=== PATIENT | female | born 1930 | race Caucasian/White ===

== ENCOUNTER 2018-07-07 08:38 | Emergency (ER) | payer MEDICARE, OTHER ==
[~2018-07-07] VITALS: Ht 157.5 cm; Wt 56.2 kg
[~2018-07-07 08:38] MED LIST: CALCAVITD PO; CENTRUM SILVER1 EAC2 PO; DIAZ5 PO; FISH1000 PO; HYDACE5 PO; OXYACE5T PO; PRED20 PO; [UNRECOGNIZED DRUG - OTHER]; [UNRECOGNIZED DRUG - REMARK]
[2018-07-07 09:43] LABS: BASOPHILS ABSOLUTE AUTO 0.06 K/mm3 (0.00-0.23); BASOPHILS PERCENT AUTO 1 % (0-2); EOSINOPHILS ABSOLUTE AUTO 0.21 K/mm3 (0.00-0.68); EOSINOPHILS PERCENT AUTO 3 % (0-6); Hemoglobin 11.9 g/dL (11.5-16.0); IMMATURE GRAN ABSOLUTE AUTO 0.02 K/mm3 (0.00-0.10); IMMATURE GRAN PERCENT AUTO 0 % (0-1); LYMPHOCYTES ABSOLUTE AUTO 1.35 K/mm3 (0.84-5.20); LYMPHOCYTES PERCENT AUTO 22 % (21-46); MONOCYTES PERCENT AUTO 11 % (4-13); Mean Corpuscular HGB 31.7 pg (26.0-34.0); Mean Corpuscular HGB Conc 32.2 g/dL (31.5-36.5); Mean Corpuscular Volume 99 fL (80-100); Mean Platelet Volume 11.1 fL (9.1-12.4); NEUTROPHILS ABSOLUTE AUTO 3.79 K/mm3 (1.96-9.15); NEUTROPHILS PERCENT AUTO 62 % (41-73); Platelet Count 217 K/mm3 (150-400); RDW Coefficient Variation 12.9 % (11.7-14.2); RDW Standard Deviation 46.7 fL (35.1-46.3); Red Blood Cell Count 3.75 M/mm3 (3.80-5.20); White Blood Cell Count 6.13 K/mm3 (4.00-11.30)
[2018-07-07 10:07] LABS: Alanine Aminotransfer (ALT/SGP 13 U/L (12-78); Albumin, Blood 3.8 g/dL (3.4-5.0); Albumin/Globulin Ratio 1.1 (0.8-1.8); Alk Phos 58 U/L (50-136); Anion Gap 5 mmol/L (6-16); Aspartate Aminotrans (AST/SGOT 18 U/L (12-37); Bilirubin, Total 0.3 mg/dL (0.1-1.0); Blood Urea Nitrogen 21 mg/dL (8-24); Bun/Creatinine Ratio 19.8 (12.0-20.0); CO2, Blood 30 mmol/L (21-32); Calcium, Blood 8.8 mg/dL (8.5-10.1); Chloride, Blood 105 mmol/L (98-108); Creatinine, Blood 1.06 mg/dL (0.40-1.00); Globulin, Blood 3.4 g/dL (2.2-4.0); Glomerular Filtration Rate 52 (60-); Glucose, Blood 79 mg/dL (70-99); Potassium, Blood 3.9 mmol/L (3.5-5.5); Sodium, Blood 140 mmol/L (136-145); Total Protein, Blood 7.2 g/dL (6.4-8.2); Troponin I <0.015 ng/mL (0.000-0.040)
== END 2018-07-07 11:55 | disposition home or self-care (01) ==
LOC: ER 08:38
PROVIDERS: Physician Assistant
DX: R07.9 Chest pain, unspecified (principal)
CPT/HCPCS: 36415; 71046; 80053; 83880; 84484; 85025; 85379; 93005; 93010

== ENCOUNTER 2019-03-09 09:40 | Emergency (ER) | payer MEDICARE, OTHER ==
[~2019-03-09] VITALS: Ht 157.5 cm; Wt 56.7 kg
[2019-03-09 11:20] LABS: Source, Urine Clean Catch
[2019-03-09 11:28] LABS: Bilirubin, Urine Neg (Neg); Blood, Urine 2+ (Neg); Glucose Qualitative, Urine Neg (Neg); Ketones, Urine 2+ (Neg); Leukocyte Esterase, Urine Neg (Neg); Nitrite, Urine Neg (Neg); Protein, Urine Neg (Neg); Urobilinogen, Urine 2+ (Normal)
[2019-03-09 11:39] LABS: Appearance, Urine Cloudy (Clear); Color, Urine Yellow (P-Yellow)
[2019-03-09 11:42] LABS: Squamous Epithelial Cells Rare /hpf (Few)
[2019-03-09 11:47] LABS: Amorphous Heavy (0-Heavy); Bacteria Mod /hpf
[2019-03-09] MEDS ORDERED: HYDR1TAB94 PO (13:13)
[2019-03-10] MEDS ORDERED: Acetaminophen-1 EAC1 PO (10:55)
[2019-03-27] MEDS ORDERED: ALBU2.5V5 INH (11:35)
[2019-03-27] MEDS ORDERED: AMOCLA600S PO (11:36)
[2019-03-27] MEDS ORDERED: BISA10S PR (11:37)
[2019-03-27] MEDS ORDERED: FURO20 PO (11:37)
[2019-03-27] MEDS ORDERED: Vsl#3 Capsule1 EACH PO (11:38)
[2019-03-27] MEDS ORDERED: ASPERCREME1 EACH TOP (11:39)
[2019-03-27] MEDS ORDERED: Melatonin3 M1 PO (11:39)
[2019-03-27] MEDS ORDERED: METO50 PO (11:41)
[2019-03-27] MEDS ORDERED: ONDA4ODT MM (11:42)
[2019-03-27] MEDS ORDERED: OMEPRAZOLE20 MG PO (11:42)
[2019-03-27] MEDS ORDERED: POTA20LUD PO (11:43)
[2019-03-27] MEDS ORDERED: ACET325UDC PO (11:44)
== END 2019-03-09 13:25 | disposition home or self-care (01) ==
LOC: ER 09:40
PROVIDERS: Emergency Medicine
DX: S22.31XA Fracture of one rib, right side, initial encounter for closed fracture (principal); M41.9 Scoliosis, unspecified; M81.0 Age-related osteoporosis without current pathological fracture; W19.XXXA Unspecified fall, initial encounter
CPT/HCPCS: 71046; 81001; 87086; 99283-25; A9270-GY

== ENCOUNTER 2019-03-10 10:36 | Inpatient (IN) | payer MEDICARE, OTHER ==
[~2019-03-10] VITALS: Ht 157.5 cm; Wt 56.9 kg
[~2019-03-10 10:36] MED LIST changes: +HYDR1TAB94 PO
[2019-03-10] MEDS ORDERED: Acetaminophen-1 EAC1 PO (10:55)
[2019-03-10 11:02] LABS: Hematocrit 34.9 % (33.0-51.0); Hemoglobin 11.5 g/dL (11.5-16.0); Mean Corpuscular HGB 31.2 pg (26.0-34.0); Mean Corpuscular Volume 95 fL (80-100); Mean Platelet Volume 11.4 fL (9.1-12.4); Platelet Count 170 K/mm3 (150-400); RDW Standard Deviation 44.7 fL (35.1-46.3); Red Blood Cell Count 3.69 M/mm3 (3.80-5.20); White Blood Cell Count 5.44 K/mm3 (4.00-11.30)
[2019-03-10 11:15] LABS: Alanine Aminotransfer (ALT/SGP 73 U/L (12-78); Albumin/Globulin Ratio 0.9 (0.8-1.8); Alk Phos 100 U/L (50-136); Anion Gap 9 mmol/L (6-16); Aspartate Aminotrans (AST/SGOT 83 U/L (12-37); Bilirubin, Total 1.9 mg/dL (0.1-1.0); Blood Urea Nitrogen 26 mg/dL (8-24); Bun/Creatinine Ratio 23.2 (12.0-20.0); CO2, Blood 25 mmol/L (21-32); Calcium, Blood 8.8 mg/dL (8.5-10.1); Chloride, Blood 98 mmol/L (98-108); Creatinine, Blood 1.12 mg/dL (0.40-1.00); Globulin, Blood 3.3 g/dL (2.2-4.0); Glomerular Filtration Rate 49 (60-); Glucose, Blood 93 mg/dL (70-99); Potassium, Blood 4.4 mmol/L (3.5-5.5); Sodium, Blood 132 mmol/L (136-145); Total Protein, Blood 6.3 g/dL (6.4-8.2); Troponin I <0.015 ng/mL (0.000-0.040)
[2019-03-10 11:22] LABS: BAND PERCENT MAN 21 % (0-8); BASOPHILS PERCENT MAN 0 % (0-2); EOSINOPHILS PERCENT MAN 0 % (0-6); LYMPHOCYTES ABSOLUTE MAN 0.16 K/mm3 (0.84-5.20); LYMPHOCYTES PERCENT MAN 3 % (21-46); METAMYELOCYTE ABSOLUTE MAN 0.16 K/mm3 (0.00-0.00); METAMYELOCYTE PERCENT MAN 3 % (0-0); MONOCYTES ABSOLUTE MAN 0.21 K/mm3 (0.16-1.47); MONOCYTES PERCENT MAN 4 % (4-13); NEUTROPHILS ABSOLUTE MAN 4.89 K/mm3 (1.96-9.15); SEG NEUTROPHILS PERCENT MAN 69 % (41-73); TOTAL CELLS COUNTED 100
[2019-03-10 14:48] LABS: Source, Urine Voided
[2019-03-10 14:52] LABS: Blood, Urine 2+ (Neg); Glucose Qualitative, Urine Neg (Neg); Ketones, Urine Neg (Neg); Leukocyte Esterase, Urine 1+ (Neg); Nitrite, Urine Neg (Neg); Protein, Urine 2+ (Neg); Specific Gravity, Urine 1.015 (1.003-1.022); Urobilinogen, Urine 2+ (Normal)
[2019-03-10 14:55] LABS: Appearance, Urine Clear (Clear); Bilirubin, Urine 1+ (Neg); Color, Urine Amber (P-Yellow)
[2019-03-10 14:58] LABS: Hyaline Casts 0-2 /lpf (0-2)
[2019-03-10 14:59] LABS: Bacteria Few /hpf; Calcium Oxalate Crystals Few /hpf; Squamous Epithelial Cells Few /hpf (Few)
--- NOTE | 2019-03-10 16:45 | NUR ---
PATIENT ARRIVED TO ROOM 348 FROM ED VIA W/C. ABLE TO TRANSFER FROM A/C TO BED WITH SBA. REPORTS SEVERE PAIN IN CHEST ABDOMEN WITH MOVEMENT, MEDICATED PER EMAR. PATIENT REPORTS POOR APPETITE FOR THE LAST SEVERAL DAYS AND NO BM SINCE SUNDAY. SKIN INTACT. VSS, ON RA. SON AT BEDSIDE. PATIENT IS A/OX4, SON IS AT BEDSIDE. PATIENT ORIENTED TO ROOM AND USE OF CALL LIGHT. DISCUSSED SAFETY AND FALL PRECAUTIONS. BED ALARM SET PER PROTOCOL.
--- NOTE | 2019-03-10 19:48 | NUR ---
transfer report to Justin RONDON on PT who lives alone and fell on a garden shovel on Sat when she was moving a wagon and last her balance when it caught on shovel. She has rt 10th rib fx and went home from ER and had increased pain.She has nausea with pain meds and last BM Sunday prior to fall. Poor appetite and in acute pain 12/19 rt abd radiates to back. Medicated with fentanyl 12.5 mcg with mild helpful effect 09/18. Has lidoderm patch rt abd and back and had norco 5/325 mg tab with minimal effect. Had been medicated for nausea 1756 with mild helpful effect.
--- NOTE | 2019-03-10 20:13 | NUR ---
Called Granddaughter Sofya to inform her PT has been transferred to room 337. Message left
--- NOTE | 2019-03-11 01:28 | NUR ---
Resting quietly at intervals. Awake at this rounding. Smiled, stated "Im OK'" then requested a pillow under her heels. (pillow placed as per request). Asymptomatic. Call light in reach.
--- NOTE | 2019-03-11 03:06 | NUR ---
PT RESTING QUIETLY WITH IVF INFUSING AT 100 ML/HR. LAB NOTIFIED NURSE OF POSITIVE BLOOD CX: GM NEG RODS. MD CORE MACHINE OPERATOR NOTIFIED, WILL REVIEW CHART AND PUT IN ORDERS. SEE MD DAHL FOR FOLLOW THROUGH. CALL LIGHT IN REACH
[2019-03-11 05:16] LABS: BASOPHILS ABSOLUTE AUTO 0.02 K/mm3 (0.00-0.23); BASOPHILS PERCENT AUTO 1 % (0-2); Hematocrit 33.5 % (33.0-51.0); Hemoglobin 11.1 g/dL (11.5-16.0); LYMPHOCYTES ABSOLUTE AUTO 0.23 K/mm3 (0.84-5.20); LYMPHOCYTES PERCENT AUTO 6 % (21-46); MONOCYTES PERCENT AUTO 6 % (4-13); Mean Corpuscular HGB 31.4 pg (26.0-34.0); Mean Corpuscular HGB Conc 33.1 g/dL (31.5-36.5); Mean Corpuscular Volume 95 fL (80-100); Mean Platelet Volume 11.5 fL (9.1-12.4); Platelet Count 135 K/mm3 (150-400); RDW Coefficient Variation 13.2 % (11.7-14.2); RDW Standard Deviation 45.9 fL (35.1-46.3); Red Blood Cell Count 3.54 M/mm3 (3.80-5.20); White Blood Cell Count 3.61 K/mm3 (4.00-11.30)
--- NOTE | 2019-03-11 05:24 | NUR ---
COMPLAINED OF SEVERE PAIN ABOUT 1 HR POST DIALUDID ADMIN. PO NORCO ADMINISTERED PER MAY - SEE MAR FOR DETAILS. VOICED SEVERE PAIN WHEN MED HIT STOMACH. HOB ELEVATED TO 90 DEGREES. CALL PLACED TO MD NEW CAR INSPECTOR. (DR BARDALES). NOTIFIED OF PAIN S/S. NURSE VOICED CONCERN OF POSSIBLE BLEED AND SUGGESTED TRANSFER TO PCU. MD ASSESSED VS AND INSTRUCTED NURSE TO REVIEW CBC IN THE AM DRAW, IF DECREASED HGB, TO CALL HER BACK. ALSO ORDERED HEATING PAD. WILL CONTINUE TO MONITOR.
[2019-03-11 05:30] LABS: EOSINOPHILS PERCENT AUTO 0 % (0-6); IMMATURE GRAN ABSOLUTE AUTO 0.01 K/mm3 (0.00-0.10); IMMATURE GRAN PERCENT AUTO 0 % (0-1); NEUTROPHILS ABSOLUTE AUTO 3.15 K/mm3 (1.96-9.15); NEUTROPHILS PERCENT AUTO 87 % (41-73)
[2019-03-11 05:33] LABS: Bun/Creatinine Ratio 27.9 (12.0-20.0); Calcium, Blood 8.3 mg/dL (8.5-10.1); Creatinine, Blood 1.11 mg/dL (0.40-1.00); Potassium, Blood 4.4 mmol/L (3.5-5.5)
[2019-03-11 05:45] LABS: BAND PERCENT MAN 44 % (0-8); BASOPHILS PERCENT MAN 0 % (0-2); EOSINOPHILS PERCENT MAN 0 % (0-6); LYMPHOCYTES ABSOLUTE MAN 0.28 K/mm3 (0.84-5.20); LYMPHOCYTES PERCENT MAN 8 % (21-46); METAMYELOCYTE ABSOLUTE MAN 0.32 K/mm3 (0.00-0.00); METAMYELOCYTE PERCENT MAN 9 % (0-0); MONOCYTES PERCENT MAN 3 % (4-13); NEUTROPHILS ABSOLUTE MAN 2.88 K/mm3 (1.96-9.15); SEG NEUTROPHILS PERCENT MAN 36 % (41-73); TOTAL CELLS COUNTED 100
--- NOTE | 2019-03-11 05:55 | NUR ---
PT WAS TRANSFERRED TO ROOM LAST PM. BP LOW, WAS BOLUSED WITH 500 CC NS PER MD ORDERS AND IVF OF NS AT 100 ML/HR AFTER. BP STABILIZED. PAIN CONTINUED, DILAUDID WAS ORDERED, RECEIVED DILAUDID A FEW TIMES AND IT SEEMED TO RELIVE THE PAIN, THEN IT STOPPED WORKING, RECEIVED NORCO PO, BUT PAIN INCREASED. MANAGER R D OTIFIED, CHANGED ANALGESICS TO FENTANYL - SEE MAR FOR DETAILS. ALSO NOTED HGB DROPPED FROM 11.5 TO 11.1. MD NOTIFIED. NO NEW ORDERS WITH THAT. CALL LIGHT IN REACH. ALERT AND ORIENTED X 4. HOB ELEVATED WILL CONTINUE TO MONITOR.
[2019-03-11 11:28] LABS: International Normalized Ratio 1.24; Prothrombin Time Results 12.9 Sec (9.7-11.5)
--- NOTE | 2019-03-11 16:42 | NUR ---
PT IS A/OX3, PLEASANT AND COOPERATIVE, THE PT IS A MINIMAL ASSIST UP TO THE BS, TODAY THE PT WAS REPORTING ABD PAIN ON THE RIGHT SIDE 10/ THE PT WAS MEDICATED WITH FENTNYL WITH MINIMAL RELIEF, THE PT WAS NAUSEATED THE PT WAS GIVEN ZOFRAN, THIS AFTERNOON THE PT WAS TAKEN DOWN TO CT FOR A DRAIN PLACEMENT INTO THE GALLBLADDER, THIS AFTERNOON THE PT REPORTED THAT MOST OF HER ABD PAIN HAD DISIPATED AND THAT MOST OF HER PAIN NOW IS IN HER BACK PT WAS MEDICATED AGIN FOR PAIN, THE PT WAS ABLE TO WORK WITH BOTH THE PHYSCICAL AND OCCUPATIONAL THERAPIST THIS AFTERNOON, PT WAS REPOSITIONED T/O THE DAY, CALL LIGHT IN REACH, WILL CONTINUE MONITOR AND ASSESS FOR CHANGES
--- NOTE | 2019-03-11 21:24 | NUR ---
VEIWS SCORE: PATIENT SCORED A 3 ON VEIWS SCORE FOR ELEVATED RESPIRATIONS AND HEART RATE. BASELINE HEAR RATE IS 90-104 PER TELI TECH. RESPIRATIONS ARE NOW 18 DOWN FROM 24. PATIENT WAS PAINFUL AND WAS GIVEN IV FENATYL. 02 SAT WAS 86% ON RA AT RECHECK, 1L NC WAS APPLIED. SAT IS NOW 95% ON 1;NC. WILL RECHECK VS IN 2 HOURS.
[2019-03-12 05:15] LABS: Hematocrit 32.7 % (33.0-51.0); Hemoglobin 10.9 g/dL (11.5-16.0); Mean Corpuscular HGB 30.9 pg (26.0-34.0); Mean Corpuscular HGB Conc 33.3 g/dL (31.5-36.5); Mean Corpuscular Volume 93 fL (80-100); Mean Platelet Volume 11.4 fL (9.1-12.4); Platelet Count 132 K/mm3 (150-400); RDW Coefficient Variation 13.4 % (11.7-14.2); RDW Standard Deviation 45.4 fL (35.1-46.3); Red Blood Cell Count 3.53 M/mm3 (3.80-5.20); White Blood Cell Count 7.17 K/mm3 (4.00-11.30)
[2019-03-12 05:33] LABS: Albumin, Blood 2.2 g/dL (3.4-5.0); Albumin/Globulin Ratio 0.6 (0.8-1.8); Bun/Creatinine Ratio 32.4 (12.0-20.0); Calcium, Blood 8.7 mg/dL (8.5-10.1); Creatinine, Blood 1.08 mg/dL (0.40-1.00); Globulin, Blood 3.4 g/dL (2.2-4.0); Potassium, Blood 4.4 mmol/L (3.5-5.5); Total Protein, Blood 5.6 g/dL (6.4-8.2)
[2019-03-12 05:59] LABS: BAND PERCENT MAN 34 % (0-8); BASOPHILS PERCENT MAN 0 % (0-2); EOSINOPHILS PERCENT MAN 0 % (0-6); LYMPHOCYTES ABSOLUTE MAN 0.35 K/mm3 (0.84-5.20); LYMPHOCYTES PERCENT MAN 5 % (21-46); METAMYELOCYTE ABSOLUTE MAN 0.14 K/mm3 (0.00-0.00); METAMYELOCYTE PERCENT MAN 2 % (0-0); MONOCYTES ABSOLUTE MAN 0.35 K/mm3 (0.16-1.47); MONOCYTES PERCENT MAN 5 % (4-13); MYELOCYTE ABSOLUTE MAN 0.07 K/mm3 (0.00-0.00); MYELOCYTE PERCENT MAN 1 % (0-0); NEUTROPHILS ABSOLUTE MAN 6.23 K/mm3 (1.96-9.15); SEG NEUTROPHILS PERCENT MAN 53 % (41-73); TOTAL CELLS COUNTED 100
--- NOTE | 2019-03-12 07:38 | NUR ---
SHIFT SUMMARY: PATIENT IS A&O X3, CONTINUES TO HAVE PAIN 8/10 IN BACK AND ABD. PAIN IN /10. IR DRAIN IS PATENT FOR A LARGE AMOUNT OF GREEN FLUID. PAIN IS CONTROLED FAIRLY WITH IV FENTANYL. NO NAUSEA REPIORTED BUT PATIENT KEEPS EMESIS BAG CLOSE EVEN WHEN DRINKING WATER. PO INTAKE IS VERY POOR. PATUIENT REMIANS ON 02 1L NC. UP TO THE BSC WITH ASSIST OF ONE AND WALKER. NO BM ONLY FLATUS.
[2019-03-12 10:19] LABS: Magnesium, Blood 1.9 mg/dL (1.6-2.4)
[2019-03-12 10:21] LABS: Thyroid Stimulating Hormone 1.38 uIU/mL (0.360-4.800)
--- NOTE | 2019-03-12 18:19 | NUR ---
Shift Summary A/O, pleasant and cooperative with care. Calls appropriately for needs. Medicated x 1 for nausea and x 1 for pain. Patient does not want to take any more pain medication because she believes it makes her feel nauseous. Patient has been running tachycardic. Afebrile, no other acute changes. Will continue to monitor.
[2019-03-13 05:18] LABS: Hematocrit 31.3 % (33.0-51.0); Hemoglobin 10.7 g/dL (11.5-16.0); Mean Corpuscular HGB 31.6 pg (26.0-34.0); Mean Corpuscular HGB Conc 34.2 g/dL (31.5-36.5); Mean Corpuscular Volume 92 fL (80-100); Mean Platelet Volume 11.8 fL (9.1-12.4); NRBC ABSOLUTE 0.03 K/mm3 (0.00-0.02); NRBC Auto 0.4 /100 WBC (0.0-0.2); Platelet Count 124 K/mm3 (150-400); RDW Coefficient Variation 13.5 % (11.7-14.2); RDW Standard Deviation 46.2 fL (35.1-46.3); Red Blood Cell Count 3.39 M/mm3 (3.80-5.20); White Blood Cell Count 7.24 K/mm3 (4.00-11.30)
[2019-03-13 05:32] LABS: Anion Gap 9 mmol/L (6-16); Blood Urea Nitrogen 46 mg/dL (8-24); Bun/Creatinine Ratio 51.1 (12.0-20.0); CO2, Blood 22 mmol/L (21-32); Calcium, Blood 8.6 mg/dL (8.5-10.1); Chloride, Blood 97 mmol/L (98-108); Glomerular Filtration Rate >60 (60-); Glucose, Blood 101 mg/dL (70-99); Potassium, Blood 4.5 mmol/L (3.5-5.5); Sodium, Blood 128 mmol/L (136-145)
[2019-03-13 05:42] LABS: BAND PERCENT MAN 17 % (0-8); BASOPHILS PERCENT MAN 0 % (0-2); EOSINOPHILS PERCENT MAN 0 % (0-6); LYMPHOCYTES ABSOLUTE MAN 0.28 K/mm3 (0.84-5.20); LYMPHOCYTES PERCENT MAN 4 % (21-46); METAMYELOCYTE ABSOLUTE MAN 0.14 K/mm3 (0.00-0.00); METAMYELOCYTE PERCENT MAN 2 % (0-0); MONOCYTES ABSOLUTE MAN 0.57 K/mm3 (0.16-1.47); MONOCYTES PERCENT MAN 8 % (4-13); NEUTROPHILS ABSOLUTE MAN 6.22 K/mm3 (1.96-9.15); SEG NEUTROPHILS PERCENT MAN 69 % (41-73); TOTAL CELLS COUNTED 100
--- NOTE | 2019-03-13 07:53 | NUR ---
SHIFT SUMMARY: PATIENT HAS BEEN VERY CONFUSED AND HALLUCINATING THIS SHIFT. OBSESSED ABOUT HER PURSE AND REPORTED TO THIS FOOD PREPARATION WORKER THAT SHE HAD MANY CREDIT CARDS IN HER WALLET AND BHARDWAJ. PATIENT AGREED TO PUT PURSE IN SAFE. SECURITY SAID THE SAFE IS SMALL AND WILL NOT ACCOMMODATE A PURSE, PATIENT REFUSED TO SEND WALLET ONLY. IT IS PASSED ON TO DAY SHIFT RN TO PLEASE SEND PURSE HOME WITH FAMILY MEMBER. VS ARE STABLE, MAINTAINS SATS IN MID 90 ON 1L NC. RESPIRATIONS ARE LAYBORED AND PATIENT BECOMES SOB WITH ACTIVITY. DRAIN IS PATIENT FOR A GREEN THICK FLUID. PATIENT DENIES PAIN OR NAUSEA. PO INTAKE IS VERY POOR, ONLY SIPS THIS SHIFT. CLINAMIX IS INFUSING PER MD ORDER.
--- NOTE | 2019-03-13 11:52 | NUR ---
0800 PT LETHARGIC, NEARLY SOLMULENT, REPOSITIONED IN BED. PT SLOW TO RESPONE. 0830 PT MORE ALERT, SITTING UPRIGHT, ATTEMPTED GIVEN PT CLEAR LIQUID, PT COUGHED AFTERWARDS. DR. LINK NOTIFIED, RECIEVED ORDERS FOR ST EVAL. 0910 DR. LINK IN TO SEE PT, PT MORE ALERT, MORE ORIENTATED, SPEAKING MORE CLEARLY. ST IN TO SEE PT, IT IS REPORTED THAT SHE WILL REQUIRED THICKENED LIQUIDS AND PILLS ONE AT A TIME IN APPLESAUCE. 1100 OT IN WITH PT, PT UP TO CHAIR, PT COMPLETELY ORIENTATED.
--- NOTE | 2019-03-13 14:37 | NUR ---
PHYSICAL THERAPIST, HOLLI IN TO SEE PT, PT IS DIFFICULT TO ARROUSE WITH PHYSICAL STIMULATION. PT EVENTUALLY AWOKE WITH STERNAL RUB AND VERBAL STIMULATION, BLANK STAIR, NOT ANSWERING QUESTIONS. PT WITH FURTHER VERBAL STIMULATION AND QUESTIONS, PT STARTS SPEAKING, PT IS DISORIENTATED EXCEPT TO PLACE. PT BECAME MORE ALERT AND ASKED PHYSIAL THERAPIST TO TURN TV OFF SO THAT SHE COULD IN [place], THE PT REPORTED THAT SHE FELT THOUGH SHE WAS DYING. RESUCITATION WAS EXPLAINED TO PT, PT REPORTED THAT SHE WOULD WANT TO PEACEFULLY AND NOT HAVE ANY THING DONE TO SAVE HER LIFE IF SHE WAS FOUND . PHYSICAL THERAPY IN ROOM AND WITNESSED PT STATE HER DYING WISHES. PT IS A FULL CODE, NO POLST ON FILE. DEREK HOFFMAN WITH PALLIATIVE CARE NOTIFIED, CALL OUT TO DR. LINK, VSS, TELE AFIB HR 95.
--- NOTE | 2019-03-13 18:20 | NUR ---
SHIFT SUMMARY. PT WITH VARYING LEVELS OF ALERTNESS AND ORIENTATION THROUGHOUT THE SHIFT. PALLIATIVE CARE RN PATRICIA HOFFMAN IN TO SEE PT THIS EVENING. PT REPORTS ABD PAIN, ALTHOUGH REFUSES NEW ORDER FOR APAP. PT CONITNUES WITH POOR PO INTAKE. ON 2L O2 NC, LUNGS CLEAR ALTHOUGH DIM AND SHALLOW. 200 ML DARK BROWN LIQUID DRAINED FROM BILIARY DRAIN AT END OF SHIFT. PT'S SONS IN TO VISIT INTERMITTENTLY DURING SHIFT.
--- NOTE | 2019-03-13 20:27 | NUR ---
PT ASLEEP WHEN NURSE ENTERED ROOM. I CALLED PT'S NAME A COUPLE OF TIMES TO WHICH PT WAS STILL SLEEPING. PT AROUSABLE WHEN I RUBBED HER SHOULDERS AND CALLED OUT HER NAME. PT SLOW TO RESPOND BUT KNEW SHE IS AT THE HOSPITAL AND THE YEAR. PT REPORTS SHE IS SEEING CHILDREN PLAYING AND HEARING MUSIC. I RE-ASSURRED PT IS AT THE HOSPITAL. HELD BOWEL MEDS DUE TO LOOSE STOOLS. WILL CONTINUE TO MONITOR.
--- NOTE | 2019-03-14 05:58 | NUR ---
VAN CDL DRIVER SUMMARY PT IS A/O X4 WHEN AWAKE. PT IS MORE AWAKE THAN SOMNLENT TOWARDS END OF SHIFT. PT CAN COMMUNICATE DISCOMFORTS AND CALLS APPROPRIATELY. BILE DRAIN PATENT AND DRAINING BROWNISH BILE. PT DENIES SEEING OR HEARING ANYTHING THAT SHE SHOULD NOT BE TOWARDS END OF SHIFT. SEE PREVIOUS NOTE. OTHERWISE, NO ACUTE CHANGES.
[2019-03-14 11:55] LABS: Hematocrit 32.3 % (33.0-51.0); Mean Corpuscular HGB Conc 34.1 g/dL (31.5-36.5); Mean Corpuscular Volume 91 fL (80-100); Mean Platelet Volume 11.6 fL (9.1-12.4); NRBC ABSOLUTE 0.07 K/mm3 (0.00-0.02); NRBC Auto 0.4 /100 WBC (0.0-0.2); Platelet Count 150 K/mm3 (150-400); RDW Coefficient Variation 13.7 % (11.7-14.2); RDW Standard Deviation 46.4 fL (35.1-46.3); Red Blood Cell Count 3.55 M/mm3 (3.80-5.20); White Blood Cell Count 17.02 K/mm3 (4.00-11.30)
[2019-03-14 12:21] LABS: Alanine Aminotransfer (ALT/SGP 36 U/L (12-78); Albumin, Blood 2.1 g/dL (3.4-5.0); Albumin/Globulin Ratio 0.6 (0.8-1.8); Alk Phos 112 U/L (50-136); Anion Gap 9 mmol/L (6-16); Aspartate Aminotrans (AST/SGOT 38 U/L (12-37); BAND PERCENT MAN 15 % (0-8); BASOPHILS PERCENT MAN 0 % (0-2); Bilirubin, Total 0.7 mg/dL (0.1-1.0); Blood Urea Nitrogen 41 mg/dL (8-24); Bun/Creatinine Ratio 63.2 (12.0-20.0); CO2, Blood 22 mmol/L (21-32); Calcium, Blood 8.1 mg/dL (8.5-10.1); Chloride, Blood 95 mmol/L (98-108); Creatinine, Blood 0.65 mg/dL (0.40-1.00); EOSINOPHILS PERCENT MAN 0 % (0-6); Globulin, Blood 3.4 g/dL (2.2-4.0); Glomerular Filtration Rate >60 (60-); Glucose, Blood 135 mg/dL (70-99); LYMPHOCYTES ABSOLUTE MAN 1.36 K/mm3 (0.84-5.20); LYMPHOCYTES PERCENT MAN 8 % (21-46); METAMYELOCYTE ABSOLUTE MAN 0.34 K/mm3 (0.00-0.00); METAMYELOCYTE PERCENT MAN 2 % (0-0); MONOCYTES ABSOLUTE MAN 0.34 K/mm3 (0.16-1.47); MONOCYTES PERCENT MAN 2 % (4-13); MYELOCYTE ABSOLUTE MAN 0.34 K/mm3 (0.00-0.00); MYELOCYTE PERCENT MAN 2 % (0-0); NEUTROPHILS ABSOLUTE MAN 14.63 K/mm3 (1.96-9.15); Potassium, Blood 4.5 mmol/L (3.5-5.5); SEG NEUTROPHILS PERCENT MAN 71 % (41-73); Sodium, Blood 126 mmol/L (136-145); TOTAL CELLS COUNTED 100; Total Protein, Blood 5.5 g/dL (6.4-8.2)
--- NOTE | 2019-03-14 12:50 | NUR ---
Review of patient care and needs and symptoms with daughter. [place] and [place] on [place]. She states easiest way to get decision is to contact gandaughter if needed. both are listed on face sheet. Pt has power of personal injury attorney and advance directive. Review of her condition daughter states she believes she would still want full code. The [facility] will bring philip copy. Advised that they may be asked to make decisions if she declines anr has an event so family contact is important. Review pt frailty and that she is recieving IV nutrition. Will continue to update family and expand and revisit code status.
--- NOTE | 2019-03-14 17:46 | NUR ---
SHIFT SUMMARY. PT MORE ALERT AND CONSISTENTLY ORIENTATED THIS SHIFT COMPARED TO YESTERDAY. PT CONTINUES WITH POOR PO INTAKE, PT UP TO CHAIR FOR EACH MEAL AND ENCOURAGED TO EAT AND DRINK TO NO AVAIL. PT REPORTED ABD PAIN TO RUQ THIS AFTERNOON, PAIN MANAGED WELL WITH ADDITION OF ULTRAM TO REGIMEN. BILIARY DRAIN WITH 80ML DARK BROWN/YELLOW DRAINAGE. DR. COLLAZO IN TO EVALUATE PT TODAY WITH THIS RN AT BEDSIDE. MESSAGE GIVEN TO DR. COLLAZO'S OFFICE THIS AM IN REGARDS TO WHAT APPEARED TO BE FLUID COLLECTION IN R FLANK/RUQ. DR. COLLAZO EVALUATED AND REPORTED THAT HE BELIEVED IT TO BE ADIPOSE. PT STARTED ON ZOSYN, LEVAQUIN D/C'D. CLINIMIX AND LIPIDS D/C'S, NS AT 75 ML/HR STARTED. NEW IV TO R FA STARTED TODAY PREVIOUS IV NO LONGER PATENT.
--- NOTE | 2019-03-15 04:01 | NUR ---
SHIFT SUMMARY: RESPS AND PULSE INCREASED TONIGHT DUE TO PAIN AND PT NEEDED TO USE COMMODE. PRN PAIN MEDS ADMINISTERED FOR ABDOMINAL PAIN, ICE APPLIED TO L HIP. PT FELL ASLEEP WITHIN THE HOUR AND HAS REMAINED ASLEEP. PULSE AND RESPS RETURNED TO NORMAL RANGE. 02 SATS 95% ON 1L VIA NC. FINE INSPIRATORY CRACKLES AUSCULTATED TO R UPPER LOBE. L HAND CONT TO BE SWOLLEN- ELEVATED ON PILLOW. B HEELS SHOW REDNESS WITHOUT BLANCHING- HEEL JODI PADS APPLIED. PT SLOW TO RESPOND BUT A/OX3 AND MAKES NEEDS KNOWN. CHOLECYSTOSTOMY DRAIN PATENT AND DRAINING DARK GREEN LIQUID. DRAIN INSERTION SITE ON R UPPER ABD WITH TRANSPARENT DRESSING INTACT- NO ERYTHEMA NOTED. DRAIN SECURED WITH STAT LOCK. BED LOW, CALL BUTTON IN REACH.
[2019-03-15 05:19] LABS: Hematocrit 31.4 % (33.0-51.0); Hemoglobin 10.6 g/dL (11.5-16.0); Mean Corpuscular HGB 30.6 pg (26.0-34.0); Mean Corpuscular HGB Conc 33.8 g/dL (31.5-36.5); Mean Corpuscular Volume 91 fL (80-100); Mean Platelet Volume 10.7 fL (9.1-12.4); NRBC ABSOLUTE 0.03 K/mm3 (0.00-0.02); NRBC Auto 0.1 /100 WBC (0.0-0.2); Platelet Count 147 K/mm3 (150-400); RDW Standard Deviation 46.7 fL (35.1-46.3); Red Blood Cell Count 3.46 M/mm3 (3.80-5.20); White Blood Cell Count 27.74 K/mm3 (4.00-11.30)
[2019-03-15 05:47] LABS: BAND PERCENT MAN 12 % (0-8); BASOPHILS PERCENT MAN 0 % (0-2); EOSINOPHILS PERCENT MAN 0 % (0-6); LYMPHOCYTES ABSOLUTE MAN 0.55 K/mm3 (0.84-5.20); LYMPHOCYTES PERCENT MAN 2 % (21-46); METAMYELOCYTE ABSOLUTE MAN 0.55 K/mm3 (0.00-0.00); METAMYELOCYTE PERCENT MAN 2 % (0-0); MONOCYTES ABSOLUTE MAN 0.83 K/mm3 (0.16-1.47); MONOCYTES PERCENT MAN 3 % (4-13); MYELOCYTE ABSOLUTE MAN 0.55 K/mm3 (0.00-0.00); MYELOCYTE PERCENT MAN 2 % (0-0); NEUTROPHILS ABSOLUTE MAN 25.24 K/mm3 (1.96-9.15); SEG NEUTROPHILS PERCENT MAN 79 % (41-73); TOTAL CELLS COUNTED 100
[2019-03-15 06:13] LABS: Albumin, Blood 1.8 g/dL (3.4-5.0); Anion Gap 6 mmol/L (6-16); Blood Urea Nitrogen 32 mg/dL (8-24); Bun/Creatinine Ratio 44.3 (12.0-20.0); CO2, Blood 24 mmol/L (21-32); Calcium, Blood 7.9 mg/dL (8.5-10.1); Chloride, Blood 99 mmol/L (98-108); Creatinine, Blood 0.72 mg/dL (0.40-1.00); Glomerular Filtration Rate >60 (60-); Glucose, Blood 90 mg/dL (70-99); Phosphorus, Blood 2.8 mg/dL (2.5-4.9); Potassium, Blood 4.6 mmol/L (3.5-5.5); Sodium, Blood 129 mmol/L (136-145)
[2019-03-15 10:22] LABS: Source, Urine Catheter
[2019-03-15 10:27] LABS: Bilirubin, Urine Neg (Neg); Blood, Urine 2+ (Neg); Glucose Qualitative, Urine Neg (Neg); Ketones, Urine Neg (Neg); Leukocyte Esterase, Urine Neg (Neg); Nitrite, Urine Neg (Neg); Protein, Urine 2+ (Neg); Specific Gravity, Urine 1.015 (1.003-1.022); Urobilinogen, Urine NORM (Normal)
[2019-03-15 10:34] LABS: Appearance, Urine Clear (Clear); Color, Urine Yellow (P-Yellow)
[2019-03-15 10:36] LABS: Bacteria Few /hpf; Squamous Epithelial Cells Rare /hpf (Few)
--- NOTE | 2019-03-15 11:41 | NUR ---
Therapeutic Pt visit this AM. Pt resting in bed upon arrival. Pt reports pain is managed with current regimen. Pt appears dyspneic as evidenced by work of breathing and increase respiratory rate. Educated on deep breathing techniques. Visited with Pt's granddaughters outside of Pt room. Pt's Advanced Directive can not be found at this time. Family will go to Pt's PCP and obtain copy. Granddaughters just met with hospitalist prior to this RN's visit and family has no quesitons at this time. Palliative Care will remain available.
--- NOTE | 2019-03-15 18:38 | NUR ---
PT IS A/OX3, PLEASANT AND COOPERATIVE, THE PT IS UP WITH 1 PERSON ASSIST TO THE CHAIR, PT APPEARS TO BE BREATHING EASILY AT REST ON RA, HOWEVER FELT THAT SHE WAS BREATHING SHALLOW AND REQUESTED TO WEAR O2, O2 WAS APPLIED AT 1L/MIN, PT HAS A GALLBLADDER DRAIN IN THE RIGHT SIDE THAT REMAINS SECURE AND DRAINING WELL, PT WAS MEDICATED FOR RIDE SIDE ABD/ LOW BACK PAIN X3 TODAY, AND FOR NAUSEA X1, CALL LIGHT IS IN REACH, FAMILY WAS IN TO SEE THE PT TODAY, PT REMAINED NPO T/O THE DAY
[2019-03-16 05:04] LABS: Hematocrit 32.5 % (33.0-51.0); Hemoglobin 10.9 g/dL (11.5-16.0); Mean Corpuscular HGB 30.7 pg (26.0-34.0); Mean Corpuscular HGB Conc 33.5 g/dL (31.5-36.5); Mean Corpuscular Volume 92 fL (80-100); Mean Platelet Volume 10.7 fL (9.1-12.4); NRBC ABSOLUTE 0.02 K/mm3 (0.00-0.02); NRBC Auto 0.1 /100 WBC (0.0-0.2); Platelet Count 191 K/mm3 (150-400); RDW Coefficient Variation 14.6 % (11.7-14.2); RDW Standard Deviation 49.1 fL (35.1-46.3); Red Blood Cell Count 3.55 M/mm3 (3.80-5.20); White Blood Cell Count 27.41 K/mm3 (4.00-11.30)
[2019-03-16 05:38] LABS: Alanine Aminotransfer (ALT/SGP 24 U/L (12-78); Albumin, Blood 1.8 g/dL (3.4-5.0); Albumin/Globulin Ratio 0.5 (0.8-1.8); Alk Phos 144 U/L (50-136); Anion Gap 7 mmol/L (6-16); Aspartate Aminotrans (AST/SGOT 25 U/L (12-37); Bilirubin, Total 1.7 mg/dL (0.1-1.0); Blood Urea Nitrogen 27 mg/dL (8-24); Bun/Creatinine Ratio 32.6 (12.0-20.0); CO2, Blood 24 mmol/L (21-32); Calcium, Blood 7.7 mg/dL (8.5-10.1); Chloride, Blood 102 mmol/L (98-108); Creatinine, Blood 0.83 mg/dL (0.40-1.00); Globulin, Blood 3.3 g/dL (2.2-4.0); Glomerular Filtration Rate >60 (60-); Glucose, Blood 83 mg/dL (70-99); Potassium, Blood 4.3 mmol/L (3.5-5.5); Sodium, Blood 133 mmol/L (136-145); Total Protein, Blood 5.1 g/dL (6.4-8.2)
[2019-03-16 05:39] LABS: BAND PERCENT MAN 27 % (0-8); BASOPHILS PERCENT MAN 0 % (0-2); EOSINOPHILS PERCENT MAN 0 % (0-6); LYMPHOCYTES ABSOLUTE MAN 0.82 K/mm3 (0.84-5.20); LYMPHOCYTES PERCENT MAN 3 % (21-46); METAMYELOCYTE ABSOLUTE MAN 0.82 K/mm3 (0.00-0.00); METAMYELOCYTE PERCENT MAN 3 % (0-0); MONOCYTES ABSOLUTE MAN 1.09 K/mm3 (0.16-1.47); MONOCYTES PERCENT MAN 4 % (4-13); MYELOCYTE ABSOLUTE MAN 0.54 K/mm3 (0.00-0.00); MYELOCYTE PERCENT MAN 2 % (0-0); NEUTROPHILS ABSOLUTE MAN 24.12 K/mm3 (1.96-9.15); SEG NEUTROPHILS PERCENT MAN 61 % (41-73); TOTAL CELLS COUNTED 100
--- NOTE | 2019-03-16 06:12 | NUR ---
patient slept most of the night calling once to use the bedside commode to urinate. Bile bag draining well. 175 overnight. puncture site left flank is clean dry and intact. Patient required 2 person assist to pivot to commode. small dose of fentanyl 12.5 appears to hold patients pain to a tolerable level. A&OX3. abd slightly distended with bowel tones in all 4 quadrants.
--- NOTE | 2019-03-16 10:11 | NUR ---
Echocardiogram completed.
--- NOTE | 2019-03-16 18:14 | NUR ---
PT IS A/OX3, PLEASANT AND COOPERATIVE, PT IS A MODERATE ASSIST UP TO THE BSC, PT IS VERY WEAK TODAY EVEN COMPARED TO YESTERDAY, THE PT WAS MEDICATED FOR PAIN X2 TODAY AND REPOSITIONED AND HEAT APPLIED TO THE RIGHT SIDE, THE PTS HEART RATE REMAINS IN A-FIB HEART RATE HIGH 136 TODAY, A CALL WAS MADE TO DR. BARDALES AND AN ORDER FOR IV LOPRESSOR WAS GIVEN, HEART BACKED DOWN TO THE 100- 110'S AND THEN BACK TO THE 120'S, PT FEELS LIKE SHE IS SOB, OXYGEN IS APPLIED @1L/MIN, PTS BREATHS ARE SHALLOW, SOME CRACKLES HEARD IN THE UPPER LOBES, MULTIPLE FAMILY IN TO SEE THE PT TODAY, THE PTS CHOLESYTECTOMY TUBE IS DR INTACT AND DRAINING, CALL LIGHT IN REACH WILL CONTINUE TO MOINITOR AND ASSESS FOR CHANGES
--- NOTE | 2019-03-17 03:52 | NUR ---
PRINTING PRESS OPERATOR APPRENTICE SUMMARY Patient appears and states she is much more comfortable receiving toradol instead of fentanyl. included is the fact that the patient has been much more lucid over the coarse of the shift. patient also requested respiratory care as she is feeling like she cant catch breath. lung sounds include fine crackles not noted last night. Patient sleeps with neck completely extended back. RT called in to assess. lungs have crackles throughout, no wheezing noted. 97% on 2 liters NC. PRN Lorazepam order rec'd per pt request, but not utilized. Unable to swallow safely tonight, suppository given to induce bowel movement. Frequent checks with monitor technician check reveal A Fib 115 - low 120's overnight.
[2019-03-17 05:16] LABS: Hematocrit 29.3 % (33.0-51.0); Hemoglobin 9.8 g/dL (11.5-16.0); Mean Corpuscular HGB 31.1 pg (26.0-34.0); Mean Corpuscular HGB Conc 33.4 g/dL (31.5-36.5); Mean Corpuscular Volume 93 fL (80-100); Mean Platelet Volume 10.4 fL (9.1-12.4); Platelet Count 226 K/mm3 (150-400); RDW Coefficient Variation 14.8 % (11.7-14.2); RDW Standard Deviation 50.3 fL (35.1-46.3); Red Blood Cell Count 3.15 M/mm3 (3.80-5.20); White Blood Cell Count 25.39 K/mm3 (4.00-11.30)
[2019-03-17 05:39] LABS: BAND PERCENT MAN 7 % (0-8); BASOPHILS PERCENT MAN 0 % (0-2); EOSINOPHILS ABSOLUTE MAN 0.25 K/mm3 (0.00-0.68); EOSINOPHILS PERCENT MAN 1 % (0-6); LYMPHOCYTES ABSOLUTE MAN 1.01 K/mm3 (0.84-5.20); LYMPHOCYTES PERCENT MAN 4 % (21-46); METAMYELOCYTE ABSOLUTE MAN 1.01 K/mm3 (0.00-0.00); METAMYELOCYTE PERCENT MAN 4 % (0-0); MONOCYTES ABSOLUTE MAN 1.01 K/mm3 (0.16-1.47); MONOCYTES PERCENT MAN 4 % (4-13); MYELOCYTE ABSOLUTE MAN 1.01 K/mm3 (0.00-0.00); MYELOCYTE PERCENT MAN 4 % (0-0); NEUTROPHILS ABSOLUTE MAN 21.07 K/mm3 (1.96-9.15); SEG NEUTROPHILS PERCENT MAN 76 % (41-73); TOTAL CELLS COUNTED 100
[2019-03-17 05:41] LABS: Albumin, Blood 1.8 g/dL (3.4-5.0); Anion Gap 7 mmol/L (6-16); Blood Urea Nitrogen 26 mg/dL (8-24); CO2, Blood 24 mmol/L (21-32); Calcium, Blood 7.5 mg/dL (8.5-10.1); Chloride, Blood 106 mmol/L (98-108); Creatinine, Blood 0.76 mg/dL (0.40-1.00); Glomerular Filtration Rate >60 (60-); Glucose, Blood 65 mg/dL (70-99); Potassium, Blood 4.1 mmol/L (3.5-5.5); Sodium, Blood 137 mmol/L (136-145)
--- NOTE | 2019-03-17 18:35 | NUR ---
PT. LYING QUIETLY GRANDDAUGHTER AT BEDSIDE, PT. IS STILL NPO UNTIL SPEECH SEES HER TOMORROW, BUT FROM DR. GONZALES STANDPOINT IT IS OKAY FOR HER TO EAT AFTER S.T. DID NOT INDICATE WHAT TYPE OF DIET. PT. HAS BEEN IN BED TODAY AND USED BEDPAN, HAD A SMALL BOWEL MOVEMENT. 300 ML OF BROWN FLUID OUT IN DRAIN IN RUQ. PT. REQUESTED PAIN MEDS TWICE TODAY. NO NOTEABLE CHANGES THIS SHIFT.
[2019-03-18 04:58] LABS: Hematocrit 29.1 % (33.0-51.0); Hemoglobin 9.6 g/dL (11.5-16.0); Mean Corpuscular Volume 94 fL (80-100); Mean Platelet Volume 9.8 fL (9.1-12.4); Platelet Count 270 K/mm3 (150-400); RDW Coefficient Variation 14.6 % (11.7-14.2); RDW Standard Deviation 49.3 fL (35.1-46.3); White Blood Cell Count 19.12 K/mm3 (4.00-11.30)
[2019-03-18 05:13] LABS: Albumin, Blood 1.8 g/dL (3.4-5.0); Anion Gap 5 mmol/L (6-16); Blood Urea Nitrogen 33 mg/dL (8-24); Bun/Creatinine Ratio 49.7 (12.0-20.0); CO2, Blood 28 mmol/L (21-32); Calcium, Blood 7.9 mg/dL (8.5-10.1); Chloride, Blood 106 mmol/L (98-108); Creatinine, Blood 0.66 mg/dL (0.40-1.00); Glomerular Filtration Rate >60 (60-); Glucose, Blood 145 mg/dL (70-99); Phosphorus, Blood 2.9 mg/dL (2.5-4.9); Potassium, Blood 4.1 mmol/L (3.5-5.5); Sodium, Blood 139 mmol/L (136-145)
[2019-03-18 05:46] LABS: BAND PERCENT MAN 6 % (0-8); BASOPHILS PERCENT MAN 0 % (0-2); EOSINOPHILS PERCENT MAN 0 % (0-6); LYMPHOCYTES ABSOLUTE MAN 0.38 K/mm3 (0.84-5.20); LYMPHOCYTES PERCENT MAN 2 % (21-46); METAMYELOCYTE ABSOLUTE MAN 0.57 K/mm3 (0.00-0.00); METAMYELOCYTE PERCENT MAN 3 % (0-0); MONOCYTES ABSOLUTE MAN 0.38 K/mm3 (0.16-1.47); MONOCYTES PERCENT MAN 2 % (4-13); MYELOCYTE ABSOLUTE MAN 0.76 K/mm3 (0.00-0.00); MYELOCYTE PERCENT MAN 4 % (0-0); NEUTROPHILS ABSOLUTE MAN 17.01 K/mm3 (1.96-9.15); SEG NEUTROPHILS PERCENT MAN 83 % (41-73); TOTAL CELLS COUNTED 100
--- NOTE | 2019-03-18 07:43 | NUR ---
SHIFT SUMMARY AOX4. QUIET SPEECH & SLOW TO RESPOND TO QUESTIONS, YET ANSWERS ALL QUESTIONS APPROPRIATELY. DENIES N/V, DYSPNEA. SPO2 @96% ON 2L O2. FINE CRACKLES HEARD T/O LUNGS. TELE IN PLACE, RUNNING AFIB W/HR 116. EARLIER THIS AM I WAS NOTIFIED BY PCU CURRICULUM COORDINATOR PT HAD A BRIEF SEC OF HR @150 THEN BACK DOWN TO 115-120'S. PT HAS BEEN NPO FOR SPEECH EVAL TODAY. REPORTS 3/10 PAIN IN RIGHT SIDE BUT DENIES THE NEED FOR ANY PAIN MEDICATION. REPOSITIONED & CHANGED PRN. CHOLECYSTOSTOMY DRAIN IS PATENT & DRAINING DARK BROWN/ORANGE FLUID. CALL LIGHT IN REACH.
--- NOTE | 2019-03-18 11:55 | NUR ---
FACILITIES ENGINEERING MANAGER AND I ASSISTED PT TO BSC, THEN TO CHAIR. OT AND THEN SPEECH THERAPY CAME IN AND WORKED WITH PATIENT. PT. TOLERATED PUREE AND NECTAR THICK LIQUIDS. NEEDS SUPREVISION R/T HER SOB. CONSUMED HALF A BOWL OF SOUP AND TOOK A FEW BITES OF PUREED FOOD STUFFS.NO CHOKING NOTED AND HAD TO REMIND PT. TO TAKE SMALLER BITES AND REST IN BETWEEN BITES. TOLERATED WELL.
--- NOTE | 2019-03-18 19:10 | NUR ---
PT. STARTED ON PUREE DIET WITH NECTAR THICK LIQUIDS. HAS BEEN UP IN CHAIR TWICE TODAY WITH A TWO PERSON ASSIST. LARGE BM THIS MORNING AND VOIDING IN BSC. PT.TOLERATING DIET, NO CHOKING OR COUGHING NOTED. SEVERAL FAMILY MEMBERS HERE TI SEE PT.
[2019-03-19 04:43] LABS: BASOPHILS ABSOLUTE AUTO 0.05 K/mm3 (0.00-0.23); BASOPHILS PERCENT AUTO 0 % (0-2); EOSINOPHILS ABSOLUTE AUTO 0.07 K/mm3 (0.00-0.68); EOSINOPHILS PERCENT AUTO 0 % (0-6); Hematocrit 28.6 % (33.0-51.0); Hemoglobin 9.3 g/dL (11.5-16.0); IMMATURE GRAN ABSOLUTE AUTO 1.57 K/mm3 (0.00-0.10); IMMATURE GRAN PERCENT AUTO 10 % (0-1); LYMPHOCYTES PERCENT AUTO 6 % (21-46); MONOCYTES ABSOLUTE AUTO 1.09 K/mm3 (0.16-1.47); MONOCYTES PERCENT AUTO 7 % (4-13); Mean Corpuscular HGB 30.7 pg (26.0-34.0); Mean Corpuscular HGB Conc 32.5 g/dL (31.5-36.5); Mean Corpuscular Volume 94 fL (80-100); Mean Platelet Volume 10.3 fL (9.1-12.4); NEUTROPHILS ABSOLUTE AUTO 12.09 K/mm3 (1.96-9.15); NEUTROPHILS PERCENT AUTO 77 % (41-73); Platelet Count 320 K/mm3 (150-400); RDW Coefficient Variation 14.9 % (11.7-14.2); RDW Standard Deviation 51.7 fL (35.1-46.3); Red Blood Cell Count 3.03 M/mm3 (3.80-5.20); White Blood Cell Count 15.77 K/mm3 (4.00-11.30)
[2019-03-19 05:14] LABS: Albumin, Blood 1.9 g/dL (3.4-5.0); Anion Gap 3 mmol/L (6-16); Blood Urea Nitrogen 34 mg/dL (8-24); Bun/Creatinine Ratio 52.8 (12.0-20.0); CO2, Blood 32 mmol/L (21-32); Chloride, Blood 106 mmol/L (98-108); Creatinine, Blood 0.64 mg/dL (0.40-1.00); Glomerular Filtration Rate >60 (60-); Glucose, Blood 105 mg/dL (70-99); Phosphorus, Blood 2.7 mg/dL (2.5-4.9); Potassium, Blood 4.3 mmol/L (3.5-5.5); Sodium, Blood 141 mmol/L (136-145)
--- NOTE | 2019-03-19 05:27 | NUR ---
SHELLFISH CHECKER SUMMARY NO ACUTE CHANGES THIS SHIFT. PT AAOX4 AND PLEASANT. CALLS APPROPRIATELY. DENIES PAIN. 50 ML OF YELLOW/BROWN BILE FROM PARAS DRAIN. CONTINUED ON IV ZOSYN. VSS, WILL CONTINUE TO MONITOR.
[2019-03-19 05:39] LABS: BAND PERCENT MAN 3 % (0-8); BASOPHILS PERCENT MAN 0 % (0-2); EOSINOPHILS PERCENT MAN 0 % (0-6); LYMPHOCYTES ABSOLUTE MAN 0.63 K/mm3 (0.84-5.20); LYMPHOCYTES PERCENT MAN 4 % (21-46); METAMYELOCYTE ABSOLUTE MAN 0.15 K/mm3 (0.00-0.00); METAMYELOCYTE PERCENT MAN 1 % (0-0); MONOCYTES ABSOLUTE MAN 0.31 K/mm3 (0.16-1.47); MONOCYTES PERCENT MAN 2 % (4-13); MYELOCYTE ABSOLUTE MAN 0.31 K/mm3 (0.00-0.00); MYELOCYTE PERCENT MAN 2 % (0-0); NEUTROPHILS ABSOLUTE MAN 14.35 K/mm3 (1.96-9.15); SEG NEUTROPHILS PERCENT MAN 88 % (41-73); TOTAL CELLS COUNTED 100
--- NOTE | 2019-03-19 12:39 | NUR ---
CALLED REPORT TO ALYCE PAT AFTER PT. TRANSFERRED TO PCU-5 AFTER ANGIOGRAM.
--- NOTE | 2019-03-19 18:28 | NUR ---
Inital spiritual care note: Mrs. Larson was alone in room. She appeared uncomfortable, but did not want to be adjusted or aid contacted. She appears quite frail. She is non-caodaism and had little use for me. She mainly wanted to sleep. Intelligence Chief services will remain available to pt and family.
--- NOTE | 2019-03-19 19:10 | NUR ---
PT. LAY ING BED AFTER DINNER, DAUGHTER AT BEDSIDE. PT. HAS BEEN UP FOR ALL MEALS TODAY. EATING A LITTLE MORE AT HER MEALS TODAY. ENCOURARAGED TO EAT THE NUTRITION CUP. DAUGHTER RELATES THE PT. DOESN'T EAR MUCH AT HOME. HAS SEVERAL SMALL MEALS A DAY. NO N/V AND THE OUTPUT IN THE DRAIN WAS LESS AND YELLOWISH IN COLOR. PT. SLEEPING MORE SOUNDLY TODAY.
--- NOTE | 2019-03-20 05:39 | NUR ---
OPERATIONS OFFICER TRUST DEPARTMENT SUMMARY slept well after HS dose of Toradol. Lung sounds with crackles in dependent bases. otherwise clear. 02 running at 2L via NC. No time OOB last night, Patient very tired. Woke this morning with severe low back pain. Gave another dose toradol and repositioned. Patient was sleeping within a half hour. Bile drain 75ml of clear, franklin/tea colored bile overnight. Puncture site clean dry and intact.
--- NOTE | 2019-03-20 18:28 | NUR ---
PATIENT A/OX3, CALM AND COOPERATIVE WITH CARE. REMAINS SOB, 2LO2 TO MAINTAIN SATS. GALLBLADDER DRAIN CLEAR/YELLOW IN COLOR. AWAITING EGD WITH DILATION POSSIBLY ON SUNDAY PER MD NOTE. PATIENT TOLERATING DYSPHAGIA DIET. 20G IV TO L WRIST WNL. RECEIVING ZOSYN TO TREAT PNA. A-FIB ON MONITOR PULSE 100-110 THIS EVENING. DAUGHTER JUSTIN AT BEDSIDE FOR MOST OF THE SHIFT.
[2019-03-21 05:24] LABS: Hematocrit 27.9 % (33.0-51.0); Hemoglobin 8.8 g/dL (11.5-16.0); Mean Corpuscular HGB 30.7 pg (26.0-34.0); Mean Corpuscular HGB Conc 31.5 g/dL (31.5-36.5); Mean Platelet Volume 10.8 fL (9.1-12.4); Platelet Count 422 K/mm3 (150-400); RDW Standard Deviation 52.2 fL (35.1-46.3); Red Blood Cell Count 2.87 M/mm3 (3.80-5.20); White Blood Cell Count 13.87 K/mm3 (4.00-11.30)
[2019-03-21 05:38] LABS: Mean Corpuscular Volume 97 fL (80-100)
[2019-03-21 05:49] LABS: Albumin, Blood 2.1 g/dL (3.4-5.0); Anion Gap 4 mmol/L (6-16); Blood Urea Nitrogen 34 mg/dL (8-24); Bun/Creatinine Ratio 41.5 (12.0-20.0); CO2, Blood 32 mmol/L (21-32); Calcium, Blood 8.3 mg/dL (8.5-10.1); Chloride, Blood 107 mmol/L (98-108); Creatinine, Blood 0.82 mg/dL (0.40-1.00); Glomerular Filtration Rate >60 (60-); Glucose, Blood 121 mg/dL (70-99); Phosphorus, Blood 3.9 mg/dL (2.5-4.9); Potassium, Blood 4.5 mmol/L (3.5-5.5); Sodium, Blood 143 mmol/L (136-145)
[2019-03-21 05:50] LABS: BASOPHILS PERCENT MAN 0 % (0-2); EOSINOPHILS ABSOLUTE MAN 0.13 K/mm3 (0.00-0.68); EOSINOPHILS PERCENT MAN 1 % (0-6); LYMPHOCYTES PERCENT MAN 8 % (21-46); METAMYELOCYTE ABSOLUTE MAN 0.27 K/mm3 (0.00-0.00); METAMYELOCYTE PERCENT MAN 2 % (0-0); MONOCYTES ABSOLUTE MAN 0.97 K/mm3 (0.16-1.47); MONOCYTES PERCENT MAN 7 % (4-13); MYELOCYTE ABSOLUTE MAN 0.27 K/mm3 (0.00-0.00); MYELOCYTE PERCENT MAN 2 % (0-0); NEUTROPHILS ABSOLUTE MAN 11.09 K/mm3 (1.96-9.15); SEG NEUTROPHILS PERCENT MAN 80 % (41-73); TOTAL CELLS COUNTED 100
--- NOTE | 2019-03-21 18:24 | NUR ---
SHIFT SUMMARY- PT SEEMS TO BE MORE ALERT AND PLEASENT THIS EVENING. PT HAS MAINTAINED A 1PA TO THE BATHROOM T/O THE DAY. A URINE SAMPLE WAS OBTAINED AND SENT TO THE LAB. PT STATES SHE HAS BACK PAIN BUT IT IS MINIMISED WITH FREQUENT REPOSITIONING. PT REQUESTED THAT STAFF HELP HER REPOSITION Q2 T/O THE NIGHT, EVEN IF SHE IS SLEEPING. MOTORBOAT MECHANIC INBOARD/OUTBOARD AWARE AND WILL PASS ON IN REPORT, WILL PASS ON IN REPORT TO NIGHT RN. PT CURRENTLY UP IN THE CHAIR WITH HER CALL LIGHT IN REACH AND FAMILY AT THE BEDSIDE. PLAN IS FOR PT TO HAVE AN ENDOSCOPY ON SUNDAY AFTER SHE HAS HAD MORE ABX AND TIME TO IMPROVE.
--- NOTE | 2019-03-22 05:40 | NUR ---
PT BEGAN C/O SOB AT APPROX 0500. PT STATES "I FEEL LIKE I CAN'T BREATH". RESPIRATIONS AT 32. O2 SATURATIONS IN 70'S ON RA. PT PUT ON 3LO2 VIA NC. O2 INCREASED TO 98-100%. LUNGS CLEAR AND DIMINISHED THROUGHOUT. HOB ELEVATED TO 90 DEGREES. AFIB ON TELE WITH HR RANGING IN 120'S WHICH HAS BEEN WNL FOR PT. PT REPORTS HX OS SOB. RESPIRATORY THERAPY NOTIFIED AND IN TO SEE PT.
[2019-03-22 05:49] LABS: BASOPHILS ABSOLUTE AUTO 0.04 K/mm3 (0.00-0.23); BASOPHILS PERCENT AUTO 0 % (0-2); EOSINOPHILS ABSOLUTE AUTO 0.04 K/mm3 (0.00-0.68); EOSINOPHILS PERCENT AUTO 0 % (0-6); Hematocrit 29.7 % (33.0-51.0); Hemoglobin 9.3 g/dL (11.5-16.0); IMMATURE GRAN ABSOLUTE AUTO 0.46 K/mm3 (0.00-0.10); IMMATURE GRAN PERCENT AUTO 3 % (0-1); LYMPHOCYTES ABSOLUTE AUTO 1.27 K/mm3 (0.84-5.20); LYMPHOCYTES PERCENT AUTO 9 % (21-46); MONOCYTES ABSOLUTE AUTO 0.78 K/mm3 (0.16-1.47); MONOCYTES PERCENT AUTO 6 % (4-13); Mean Corpuscular HGB 30.7 pg (26.0-34.0); Mean Corpuscular HGB Conc 31.3 g/dL (31.5-36.5); Mean Corpuscular Volume 98 fL (80-100); NEUTROPHILS ABSOLUTE AUTO 10.88 K/mm3 (1.96-9.15); NEUTROPHILS PERCENT AUTO 81 % (41-73); NRBC ABSOLUTE 0.02 K/mm3 (0.00-0.02); NRBC Auto 0.1 /100 WBC (0.0-0.2); Platelet Count 434 K/mm3 (150-400); RDW Coefficient Variation 15.2 % (11.7-14.2); RDW Standard Deviation 52.5 fL (35.1-46.3); Red Blood Cell Count 3.03 M/mm3 (3.80-5.20); White Blood Cell Count 13.47 K/mm3 (4.00-11.30)
[2019-03-22 06:36] LABS: Albumin, Blood 2.3 g/dL (3.4-5.0); Anion Gap 6 mmol/L (6-16); Blood Urea Nitrogen 33 mg/dL (8-24); Bun/Creatinine Ratio 39.4 (12.0-20.0); CO2, Blood 28 mmol/L (21-32); Calcium, Blood 8.4 mg/dL (8.5-10.1); Chloride, Blood 107 mmol/L (98-108); Creatinine, Blood 0.84 mg/dL (0.40-1.00); Glomerular Filtration Rate >60 (60-); Glucose, Blood 113 mg/dL (70-99); Phosphorus, Blood 4.2 mg/dL (2.5-4.9); Potassium, Blood 4.8 mmol/L (3.5-5.5); Sodium, Blood 141 mmol/L (136-145)
--- NOTE | 2019-03-22 07:19 | NUR ---
CALLED DR NEWELL- PT C/O SOB HR AFIB AND TACHY 120-130'S PRN METOPROLOL FOR HR GREATER THAN 130. HR HAS SUSTAINED 120-130 SINCE 399. WAITING FOR A CALL BACK. PT HR NOT GREATER THAN 130.
--- NOTE | 2019-03-22 08:00 | NUR ---
PT HR STILL ELEVATED PT TO RECIEVE IV LASIX STAT. SPOKE TO DR NEWELL, HE CAME TO SEE THE PT ALREADY. PT ALERT AND TALKING TO STAFF BUT SOB. PT DENIES PAIN. PT PALE AND WEAK.
--- NOTE | 2019-03-22 08:08 | NUR ---
SPOKE TO DR REECE CALDERON TO GIVE IV METOPROLOL. PT RECIEVED BREATHING Tx FROM RT 5MG IV METOPROLOL. SBP IN THE 140'S. CALLED DR NEWELL AGAIN PT LUNG SOUNDS ARE VERY WET WHEN COMPARED TO PREVIOUS SHIFT. REQUESTED COME TO SEE THE PT AND RECIEVED ORDER FOR IV LASIX 40MG STAT (NOW GIVEN). INSTRUCTED PT ON BREATHING, SATS IN THE 90'S ON 2L VIA NC PT WAS ON ROOM AIR PREVIOUSLY. DR WILL COME TO SEE THE PT SHORTLY LAB DRAW FOR BNP.
--- NOTE | 2019-03-22 10:30 | NUR ---
ORDER FOR CARDIZEM PUSH NOT GIVEN. PT HR CAME DOWN AND IS SUSTAINED IN THE 90'S AT THIS TIME. IF PT GOES OVER 110 TELE WILL CALL NURSING STAFF.
--- NOTE | 2019-03-22 17:18 | NUR ---
ASSUMED CARE OF PT- PT C/O SEVERE DYSPNEA HR 120-[address] NEWELL AND LEFT A MESSAGE. WILL GIVE IV METOPROLOL. SPOKE TO NETWORK OPERATIONS SPECIALIST PT HAS CRACKES AND APPEARS TO BE EDEMATOUS.
--- NOTE | 2019-03-22 17:20 | NUR ---
BEDSIDE REPORT COMPLETED WITH NIGHT RN MAGDALENA. PT HAVING ANOTHER EPISODE OF TACHYPNEA. HR 104-124 PER TELE MAGDALENA AWARE. CALLED RT PT NOW RECIEVING BREATHING Tx.
--- NOTE | 2019-03-22 17:30 | NUR ---
ASSUMED CARE OF PT. ASSUMED CARE OF PT AT 1715. PT DENIES NEEDS AT THIS TIME. BREATHING TREATMENT IN PROGRESS. IV ANTIOBIOTICS RUNNING. WILL CONTINUE TO MONITOR.
[2019-03-23 05:28] LABS: Hematocrit 29.9 % (33.0-51.0); Hemoglobin 9.4 g/dL (11.5-16.0); Mean Corpuscular HGB Conc 31.4 g/dL (31.5-36.5); Mean Corpuscular Volume 99 fL (80-100); Mean Platelet Volume 11.1 fL (9.1-12.4); NRBC ABSOLUTE 0.02 K/mm3 (0.00-0.02); NRBC Auto 0.2 /100 WBC (0.0-0.2); Platelet Count 449 K/mm3 (150-400); RDW Coefficient Variation 15.1 % (11.7-14.2); Red Blood Cell Count 3.03 M/mm3 (3.80-5.20)
[2019-03-23 05:59] LABS: Anion Gap 4 mmol/L (6-16); Blood Urea Nitrogen 31 mg/dL (8-24); Bun/Creatinine Ratio 34.7 (12.0-20.0); CO2, Blood 35 mmol/L (21-32); Calcium, Blood 8.3 mg/dL (8.5-10.1); Chloride, Blood 104 mmol/L (98-108); Creatinine, Blood 0.89 mg/dL (0.40-1.00); Glomerular Filtration Rate >60 (60-); Glucose, Blood 105 mg/dL (70-99); Potassium, Blood 3.9 mmol/L (3.5-5.5); Sodium, Blood 143 mmol/L (136-145)
--- NOTE | 2019-03-23 07:06 | NUR ---
SHIFT SUMMARY HAS RESTED WELL THIS SHIFT. HAS BEEN ABLE TO AMBULATE TO BSC WITH ASSITANCE. TOLERATING NECTAR THICK FLUIDS WELL. DENIES PAIN, DISCOMFORT, OR FURTHER NEEDS AT THIS TIME. SAFETY MEASURES IN PLACE. WILL GIVE HAND OFF TO ONCOMING SHIFT USING SBAR.
--- NOTE | 2019-03-23 16:08 | NUR ---
PT IS A/OX3, PLEASANT AND COOPERATIVE, THE PT APPEARS TO BE BREATHING EASILY AT REST ON O2 @ 2L/MIN, THE PT IS UP WITH MINIMAL ASSIST T/O THE DAY TO THE BSC, THE PT HAS HAD MULTIPLE LOOSE BM'S AND LARGE URINE OUTOUT, PTS GALLBLADDER DRAIN CATHETER IS SECURE INPLACE AND DRAINING BILE COLORED FLUID, PT DENIED NEED FOR PAIN MEDICATION T/O THE DAY, LIDOCAINE PATCHES APPLIED TO THE PTS BACK, PTS DAUGHTER WAS AT THE BEDSIDE T/O THE DAY, CALL LIGHT IN REACH, WILL CONTINUE TO MONITOR AND ASSESS FOR CHANGES
--- NOTE | 2019-03-24 02:59 | NUR ---
ANXIOUS/TEARFUL ANSWERED PTS CALL LIGHT, SHE ASKED FOR DIFFERENT UNDERWEAR STATING THE ONES SHE WAS WEARING WHERE BOTHERING HER THEN STATES SHE HAS ITCHY EYES & ASKS FOR EYE DROPS, INFORMED PT I WOULD ASK THE HOSPITALIST. THEN PT STATED SHE WAS HAVING DIFFICULTY SLEEPING & GOT TEARFUL "I CAN'T TURN OFF MY BRAIN, I KEEP THINKING ABOUT ALL THE BAD THINGS." INFORMED PT I WOULD CALL HOSPITALIST & SEE IF THERE WAS ANYTHING ELSE WE COULD GIVE HER. THEN PT STARTED HANDING ME DIFFERENT PILLS FROM HER PURSE THAT WERE UNLABELED & SHE STATED 3 OF THEM WHERE OXYCODONE, INFORMED CHARGE NURSE ANNABEL JACKSON & PLACED ALL LOSSE MEDS IN A PLASTIC BAG & IN LOCKED BOX IN ROOM. WCTM.
--- NOTE | 2019-03-24 05:52 | NUR ---
SHIFT SUMMARY NO ACUTE CHANGES THIS SHIFT. VSS. DENIES PAIN, N/V, OR DYSPNEA. ON TELE, RUNNING AFIB W/HR 82. LUNGS HAVE CRACKLES T/O, E/U RESPIRATIONS, OCCASIONAL NON PRODUCTIVE MOIST COUGH, SPO2 >90% ON 1L O2. PARAS DRAIN IS PATENT & HAD 150ML ORANGE/BROWN OUTPUT. CALL LIGHT IN REACH. WCTM.
[2019-03-24 05:53] LABS: Anion Gap 4 mmol/L (6-16); Blood Urea Nitrogen 30 mg/dL (8-24); Bun/Creatinine Ratio 34.6 (12.0-20.0); CO2, Blood 40 mmol/L (21-32); Calcium, Blood 8.2 mg/dL (8.5-10.1); Chloride, Blood 100 mmol/L (98-108); Creatinine, Blood 0.87 mg/dL (0.40-1.00); Glomerular Filtration Rate >60 (60-); Glucose, Blood 121 mg/dL (70-99); Potassium, Blood 3.2 mmol/L (3.5-5.5); Sodium, Blood 144 mmol/L (136-145)
--- NOTE | 2019-03-24 15:09 | NUR ---
Andres, Solange Tran a [facility] skilled nursing [facility] counselor, received permission by Irma Larson on 03/24/2019 to care for Irma Larson during the evening shift of 03/25/2019
--- NOTE | 2019-03-24 15:18 | NUR ---
Student nurse asked patient for permission to help with care on 03/25/19 from [phone].
--- NOTE | 2019-03-24 18:20 | NUR ---
pt is a/ox3, pleasant and cooperative, the pt is up with minimal assist, the pt appears to be breathing easily on 1l/min o2 at this time, the pt was supposed to have been water only this am the doctors order was misunderstood as being only NPO after lunch, Dr simpson was called order was clarified, and procedure was delayed until tomarrow, the pt today was up with the physical therapist and ambulated into the harley, sob with activity, pts family is at the bedside t/o the day, call light in reach
--- NOTE | 2019-03-24 20:03 | NUR ---
theraputic visit with patient. plan of care reviewed with team. and care managers. Family want to take her home at discharge. pt high risk for failure to thrive due to her past issues with not wanting to eat. pt may benefit from out patient follow up with operations lead and daily weights.
--- NOTE | 2019-03-25 05:17 | NUR ---
SHIFT SUMMARY NO ACUTE CHANGES THIS SHIFT. AOX4. VSS. TELE RUNNING AFIB HR IN 80'S. DENIES PAIN, N/V OR DYSPNEA @REST. SPO2 @93% ON 1L O2, E/U RESPIRATIONS, FINE CRACKLES HEARD IN BASES OF LUNGS. CHOLECYSTOSTOMY PATENT W/125ML OUTPUT. PT HAS BEEN NPO SINCE 0000 FOR EGD THIS AM. CALL LIGHT IN REACH. WCTM.
[2019-03-25 05:34] LABS: Anion Gap 4 mmol/L (6-16); Blood Urea Nitrogen 26 mg/dL (8-24); Bun/Creatinine Ratio 34.3 (12.0-20.0); CO2, Blood 39 mmol/L (21-32); Calcium, Blood 8.3 mg/dL (8.5-10.1); Chloride, Blood 101 mmol/L (98-108); Creatinine, Blood 0.76 mg/dL (0.40-1.00); Glomerular Filtration Rate >60 (60-); Glucose, Blood 95 mg/dL (70-99); Potassium, Blood 3.5 mmol/L (3.5-5.5); Sodium, Blood 144 mmol/L (136-145)
--- NOTE | 2019-03-25 15:02 | NUR ---
EGD PATIENT PICKED UP AND TAKEN FOR EGD, 4949.
--- NOTE | 2019-03-25 15:21 | NUR ---
PT INTO SDS WITH DAUGHTER FOR PROCEDURE. History, Chart, Medications and Allergies reviewed before start of procedure.Patient confirms NPO status and agrees with scheduled surgery.
--- NOTE | 2019-03-25 15:31 | NUR ---
03/25/[address] HERE TO PROVIDE ANESTHESIA CARE, PLEASE SEE DETAILED RECORD. History, Chart, Medications and Allergies reviewed before start of procedure. PATIENT CONFIRMS NPO STATUS AND AGREES WITH SCHEDULED PROCEDURE. MONITOR INTACT WITH CONTINUOUS PULSE OXIMETRY AND INTERMITTENT BP. O2 VIA N/C INTACT THROUGHOUT SEDATION/PROCEDURE VIA POM AT 10 L AND END TIDAL CO2 MONITORING. Bite Block Placed IMMEDIATELY PRESEDATION.
--- NOTE | 2019-03-25 18:53 | NUR ---
PROVIDER CONTACT CALLED AND SPOKE WITH DR. NEWELL ADVISING OF LOWER BP'S. DR. NEWELL REQUESTED HOLD PARAMETERS PLACED ON METOPROLOL. ENTERED THOSE ORDERS REQUESTED, HOLD METOPROLOL IF SYSTOLIC BP LESS THAN 100.
--- NOTE | 2019-03-25 21:44 | NUR ---
spoke to CANE STRIPPER Estelita Khan regarding patient NPO status after procedure and finding (per report from Day RN that there is no peristalsis action in the esphagus) She agreed that patient should be kept NPO til clarification can be made tomorrow. BPs have been running low and metoprolol was held for that reason also. will call again if we need an IV metoprolol tonight.
[2019-03-26 05:41] LABS: Anion Gap 2 mmol/L (6-16); Blood Urea Nitrogen 25 mg/dL (8-24); Bun/Creatinine Ratio 30.5 (12.0-20.0); CO2, Blood 41 mmol/L (21-32); Chloride, Blood 100 mmol/L (98-108); Creatinine, Blood 0.82 mg/dL (0.40-1.00); Glomerular Filtration Rate >60 (60-); Glucose, Blood 89 mg/dL (70-99); Sodium, Blood 143 mmol/L (136-145)
--- NOTE | 2019-03-26 17:45 | NUR ---
SHIFT SUMMARY- PT A/O PLEASANT AND COOPERATIVE. PT WORKED WITH PHYSICAL THRAPY AND OCCUPATIONAL THERAPY THIS AFTERNOON AND IS REGAINING STRENGTH. PT EVALUATED BY SPEECH THERAPY, ADVANCED TO MECHANICAL SOFT DIET. PT IS RECIEVING MEDICATIONS CRUSHED AND IN APPLESAUCE. CALLED PHARMACY TO CONFIRM THAT MEDICATIONS COULD BE CRUSHED OR OPENED.
--- NOTE | 2019-03-26 21:30 | NUR ---
PT RECEIVED 30 ML OF CONTRAST PER VENTILATING EQUIPMENT INSTALLER INTRUCTIONS IN PREP FOR CT IN MORNING. PT TO BE NPO AT MIDNIGHT
[2019-03-27 05:33] LABS: Anion Gap 5 mmol/L (6-16); Blood Urea Nitrogen 28 mg/dL (8-24); Bun/Creatinine Ratio 37.5 (12.0-20.0); CO2, Blood 36 mmol/L (21-32); Calcium, Blood 8.2 mg/dL (8.5-10.1); Chloride, Blood 100 mmol/L (98-108); Creatinine, Blood 0.75 mg/dL (0.40-1.00); Glomerular Filtration Rate >60 (60-); Glucose, Blood 96 mg/dL (70-99); Potassium, Blood 3.3 mmol/L (3.5-5.5); Sodium, Blood 141 mmol/L (136-145)
[2019-03-27] MEDS ORDERED: ALBU2.5V5 INH ×2 (11:35)
[2019-03-27] MEDS ORDERED: AMOCLA600S PO ×2 (11:36)
[2019-03-27] MEDS ORDERED: BISA10S PR ×2 (11:37)
[2019-03-27] MEDS ORDERED: FURO20 PO ×2 (11:37)
[2019-03-27] MEDS ORDERED: Vsl#3 Capsule1 EACH PO ×2 (11:38)
[2019-03-27] MEDS ORDERED: ASPERCREME1 EACH TOP ×2 (11:39)
[2019-03-27] MEDS ORDERED: Melatonin3 M1 PO ×2 (11:39)
[2019-03-27] MEDS ORDERED: METO50 PO ×2 (11:41)
[2019-03-27] MEDS ORDERED: OMEPRAZOLE20 MG PO ×2 (11:42)
[2019-03-27] MEDS ORDERED: ONDA4ODT MM ×2 (11:42)
[2019-03-27] MEDS ORDERED: POTA20LUD PO ×2 (11:43)
[2019-03-27] MEDS ORDERED: ACET325UDC PO ×2 (11:44)
--- NOTE | 2019-03-27 15:00 | NUR ---
DISCHARGE NOTE- PT AND DAUGHTER WERE GIVEN VERBAL AND WRITTEN DISCHARGE INSTRUCTIONS AND ACKNOWLEDGED UNDERSTANDING OF THEM. NO FURTHER QUESTIONS AT THE TIME OF DISCHARGE. PT HAD NO S&S OF DISTRESS NOTED AT THE TIME OF DISCHARGE, HOME O2 EVAL INDICATED NO NEED FOR HOME O2 PER RESP THERAPIST. PT DISCHARGED HOME WITH HOME HEALTH. PT WAS ESCORTED OUT VIA WC TO THE PATIENT ENTRANCE BY THE GRADUATE ASSISTANT. CONTACT INFO PROVIDED SHOULD QUESTIONS ARRISE LATER TODAY.
== END 2019-03-27 15:00 | disposition home health service (06) | DRG 871 ==
LOC: ER 10:36 → MEDS 10:37
PROVIDERS: Emergency Medicine; Family Medicine; Internal Medicine; Internal Medicine Gastroenterology; Surgery; ADMIT Internal Medicine
PROC: 0F9430Z Drainage of Gallbladder with Drainage Device, Percutaneous Approach (ICD-10-PCS; 2019-03-11)
PROC: 0DB68ZX Excision of Stomach, Via Natural or Artificial Opening Endoscopic, Diagnostic (ICD-10-PCS; 2019-03-25)
PROC: 0DB78ZX Excision of Stomach, Pylorus, Via Natural or Artificial Opening Endoscopic, Diagnostic (ICD-10-PCS; 2019-03-25)
PROC: 0DB18ZX Excision of Upper Esophagus, Via Natural or Artificial Opening Endoscopic, Diagnostic (ICD-10-PCS; 2019-03-25)
PROC: 0D758ZZ Dilation of Esophagus, Via Natural or Artificial Opening Endoscopic (ICD-10-PCS; principal; 2019-03-25 09:45)
PROC: 0DB38ZX Excision of Lower Esophagus, Via Natural or Artificial Opening Endoscopic, Diagnostic (ICD-10-PCS; 2019-03-25 09:45)
DX: A41.59 Other Gram-negative sepsis (principal); J69.0 Pneumonitis due to inhalation of food and vomit; J96.01 Acute respiratory failure with hypoxia; I50.33 Acute on chronic diastolic (congestive) heart failure; K85.90 Acute pancreatitis without necrosis or infection, unspecified; S22.31XA Fracture of one rib, right side, initial encounter for closed fracture; K82.1 Hydrops of gallbladder; I48.20 Chronic atrial fibrillation, unspecified; K80.10 Calculus of gallbladder with chronic cholecystitis without obstruction; S36.113A Laceration of liver, unspecified degree, initial encounter; S36.112A Contusion of liver, initial encounter; E87.1 Hypo-osmolality and hyponatremia; N17.9 Acute kidney failure, unspecified; R65.20 Severe sepsis without septic shock; Z79.01 Long term (current) use of anticoagulants; W01.198A Fall on same level from slipping, tripping and stumbling with subsequent striking against other object, initial encounter; Y92.017 Garden or yard in single-family (private) house as the place of occurrence of the external cause
CPT/HCPCS: 36415; 49405; 71045; 71046; 71260; 74177; 80048; 80053; 80069; 81001; 82947; 83605; 83690; 83735; 83880; 84443; 84484; 85025; 85027; 85610; 87040; 87070; 87077; 87086; 87186; 87205; 87449; 88305; 88312; 88342; 92526; 92610; 93005; 93010; 93306; 94640; 94760; 94761; 96361; 96374-59; 96375; 96375-59; 96376; 97110; 97116; 97163; 97166; 97530; 97535; 99285-25; A9270; A9270-GY; G0378; J1170; J1885; J1940; J1956; J2370; J2405; J2543; J2704; J3010; J7030; J7050; J7120; Q9967

== ENCOUNTER → 2019-04-07 | Outpatient (CLI) | payer MEDICARE, OTHER ==
[~2019-04-07] MED LIST changes: +ACET325UDC PO; +ALBU2.5V5 INH; +AMOCLA600S PO; +ASPERCREME1 EACH TOP; +Acetaminophen-1 EAC1 PO; +BISA10S PR; +FURO20 PO; +METO50 PO; +Melatonin3 M1 PO; +OMEPRAZOLE20 MG PO; +ONDA4ODT MM; +POTA20LUD PO; +Vsl#3 Capsule1 EACH PO
[2019-04-07 18:50] LABS: BASOPHILS ABSOLUTE AUTO 0.04 K/mm3 (0.00-0.23); BASOPHILS PERCENT AUTO 1 % (0-2); EOSINOPHILS ABSOLUTE AUTO 0.12 K/mm3 (0.00-0.68); EOSINOPHILS PERCENT AUTO 2 % (0-6); Hematocrit 32.8 % (33.0-51.0); Hemoglobin 10.3 g/dL (11.5-16.0); IMMATURE GRAN ABSOLUTE AUTO 0.05 K/mm3 (0.00-0.10); IMMATURE GRAN PERCENT AUTO 1 % (0-1); LYMPHOCYTES PERCENT AUTO 20 % (21-46); MONOCYTES ABSOLUTE AUTO 0.48 K/mm3 (0.16-1.47); MONOCYTES PERCENT AUTO 7 % (4-13); Mean Corpuscular HGB 31.1 pg (26.0-34.0); Mean Corpuscular HGB Conc 31.4 g/dL (31.5-36.5); Mean Corpuscular Volume 99 fL (80-100); NEUTROPHILS ABSOLUTE AUTO 5.23 K/mm3 (1.96-9.15); NEUTROPHILS PERCENT AUTO 71 % (41-73); Platelet Count 272 K/mm3 (150-400); RDW Standard Deviation 57.1 fL (35.1-46.3); Red Blood Cell Count 3.31 M/mm3 (3.80-5.20); White Blood Cell Count 7.42 K/mm3 (4.00-11.30)
[2019-04-07 19:35] LABS: Alanine Aminotransfer (ALT/SGP 29 U/L (12-78); Albumin, Blood 2.4 g/dL (3.4-5.0); Albumin/Globulin Ratio 0.7 (0.8-1.8); Alk Phos 160 U/L (50-136); Anion Gap 4 mmol/L (6-16); Aspartate Aminotrans (AST/SGOT 29 U/L (12-37); Bilirubin, Total 0.4 mg/dL (0.1-1.0); Blood Urea Nitrogen 14 mg/dL (8-24); Bun/Creatinine Ratio 15.6 (12.0-20.0); CO2, Blood 29 mmol/L (21-32); Calcium, Blood 8.1 mg/dL (8.5-10.1); Chloride, Blood 100 mmol/L (98-108); Globulin, Blood 3.4 g/dL (2.2-4.0); Glomerular Filtration Rate >60 (60-); Glucose, Blood 146 mg/dL (70-99); Potassium, Blood 3.8 mmol/L (3.5-5.5); Sodium, Blood 133 mmol/L (136-145); Total Protein, Blood 5.8 g/dL (6.4-8.2)
== END | disposition home or self-care (01) ==
LOC: LAB 16:58 → LAB SHORT 16:58
DX: N18.3 Chronic kidney disease, stage 3 (moderate) (principal)
CPT/HCPCS: 80053; 85025

== ENCOUNTER 2019-07-31 19:48 | Inpatient (IN) | payer MEDICARE, OTHER ==
[~2019-07-31] VITALS: Ht 154.9 cm; Wt 47.7 kg
[~2019-07-31 19:48] MED LIST changes: -FURO20 PO; -METO50 PO; -OMEPRAZOLE20 MG PO
[2019-07-31 20:03] LABS: BASOPHILS ABSOLUTE AUTO 0.02 K/mm3 (0.00-0.23); BASOPHILS PERCENT AUTO 0 % (0-2); EOSINOPHILS PERCENT AUTO 0 % (0-6); Hematocrit 40.6 % (33.0-51.0); Hemoglobin 13.6 g/dL (11.5-16.0); IMMATURE GRAN ABSOLUTE AUTO 0.05 K/mm3 (0.00-0.10); IMMATURE GRAN PERCENT AUTO 0 % (0-1); LYMPHOCYTES ABSOLUTE AUTO 1.06 K/mm3 (0.84-5.20); LYMPHOCYTES PERCENT AUTO 7 % (21-46); MONOCYTES ABSOLUTE AUTO 1.24 K/mm3 (0.16-1.47); MONOCYTES PERCENT AUTO 9 % (4-13); Mean Corpuscular HGB 30.3 pg (26.0-34.0); Mean Corpuscular HGB Conc 33.5 g/dL (31.5-36.5); Mean Corpuscular Volume 90 fL (80-100); Mean Platelet Volume 10.8 fL (9.1-12.4); NEUTROPHILS ABSOLUTE AUTO 12.21 K/mm3 (1.96-9.15); NEUTROPHILS PERCENT AUTO 84 % (41-73); Platelet Count 243 K/mm3 (150-400); RDW Coefficient Variation 13.6 % (11.7-14.2); RDW Standard Deviation 45.5 fL (35.1-46.3); Red Blood Cell Count 4.49 M/mm3 (3.80-5.20); White Blood Cell Count 14.58 K/mm3 (4.00-11.30)
[2019-07-31 20:18] LABS: International Normalized Ratio 1.01; Prothrombin Time Results 10.8 Sec (9.7-11.5)
[2019-07-31 20:36] LABS: Alanine Aminotransfer (ALT/SGP 34 U/L (12-78); Albumin, Blood 3.8 g/dL (3.4-5.0); Albumin/Globulin Ratio 0.9 (0.8-1.8); Alk Phos 113 U/L (50-136); Anion Gap 8 mmol/L (6-16); Aspartate Aminotrans (AST/SGOT 102 U/L (12-37); Bilirubin, Total 0.8 mg/dL (0.1-1.0); Blood Urea Nitrogen 25 mg/dL (8-24); Bun/Creatinine Ratio 37.7 (12.0-20.0); CO2, Blood 28 mmol/L (21-32); Calcium, Blood 9.2 mg/dL (8.5-10.1); Chloride, Blood 97 mmol/L (98-108); Creatinine, Blood 0.66 mg/dL (0.40-1.00); Globulin, Blood 4.1 g/dL (2.2-4.0); Glomerular Filtration Rate >60 (60-); Glucose, Blood 106 mg/dL (70-99); Potassium, Blood 3.9 mmol/L (3.5-5.5); Sodium, Blood 133 mmol/L (136-145); Total Protein, Blood 7.9 g/dL (6.4-8.2)
[2019-07-31] MEDS ORDERED: ELIQUIS2.5 MG PO (21:20)
[2019-07-31] MEDS ORDERED: Lopressor 25 mg25 MG PO (21:21)
[2019-07-31] MEDS ORDERED: FURO20 PO (21:22)
[2019-07-31] MEDS ORDERED: OMEPRAZOLE20 MG PO (21:23)
--- NOTE | 2019-08-01 01:06 | NUR ---
07/31/19 2330 PT ADMITTED TO ROOM 345 PER CART FROM ER; PT NON RESPONSIVE WHILE WEARING NON REBREATHER O2 MASK AT 10L/M; PTS GRAND DAUGHTER NEGRITA AT BEDSIDE AND REINFORCED DNR REQUESTS. PT RESTING HIGH FOWLERS POSITION.
--- NOTE | 2019-08-01 06:03 | NUR ---
SHIFT SUMMARY: 89 Y/O SLENDER FEMALE ON COMFORT CARE; PT NON RESPONSIVE WHILE SITTING HIGH FOWLERS WHILE WEARING O2 NON REBREATHER MASK 10L/M; PT IN NO RESPIRATORY DISTRESS AND IS FLACID ON RIGHT SIDE OF BODY; PT NON VERBAL AND OCCASIONALLY MOVES LEFT ARM ACKWARDLY ATTEMPTING TO REMOVE O2 MASK; PTS GRANDDAUGHTER AT SIDE ALL SHIFT AND IS VERY SUPPORTIVE; BED ALARM APPLIED, BED LOW POSITION WITH CALL LIGHT AT SIDE.
--- NOTE | 2019-08-01 08:23 | NUR ---
CC ASSESSMENT: PT IN NO APPARENT DISTRESS. NO DYSPNEA/SOB/SECRETIONS. FAMILY IN ROOM. WCTM.
--- NOTE | 2019-08-01 10:13 | NUR ---
CC ASSESSMENT: PT IN NO APPARENT DISTRESS. NO DYSPNEA/SOB/SECRETIONS. FAMILY IN ROOM. WCTM.
--- NOTE | 2019-08-01 10:49 | NUR ---
Echocardiogram completed.
--- NOTE | 2019-08-01 15:15 | NUR ---
CC ASSESSMENT: PT IN NO APPARENT DISTRESS. NO DYSPNEA/SOB/SECRETIONS; SCOPOLAMINE TOP IN PLACE. FAMILY IN ROOM. WCTM.
--- NOTE | 2019-08-01 15:16 | NUR ---
COMFORT CARE ASSESSMENT: PT IN NO APPARENT DISTRESS. NO DYSPNEA/SOB/SECRETIONS. FAMILY IN ROOM. WCTM.
--- NOTE | 2019-08-01 17:24 | NUR ---
CC ASSESSMENT: PT IN NO APPARENT DISTRESS. NO DYSPNEA/SOB/SECRETIONS. FAMILY IN ROOM. WCTM.
--- NOTE | 2019-08-01 19:14 | NUR ---
CC ASSESSMENT; PT IN NO APPARENT DISTRESS. NO DYSPNEA/SOB/SECRETIONS. FAMILY IN ROOM. WCTM.
--- NOTE | 2019-08-01 19:15 | NUR ---
SHIFT SUMMARY: NO ACUTE CHANGES TO REPORT THIS SHIFT. COMFORT CARE MEASURES IN EFFECT. PT IS ALLERGIC TO MORPHINE. NO S/SX PAIN THIS SHIFT. SCOPOLAMINE TOP IN PLACE L EAR. O2 @ 10L VIA REBREATHER. FAMILY IN ROOM T/O SHIFT. REPORT GIVEN TO ONCOMING RN.
--- NOTE | 2019-08-01 23:24 | NUR ---
PT PULLING OFF 02 MASK, NC ATTEMPTED AND PT REMOVED THAT WELL. 02 REMOVED DUE TO PT INDICATION SHE DOES NOT WANT IT AND LACK OF DYSPNEA. RESPS REGULAR AND NON-LABORED. WILL CONT TO MONITOR. PT RESTING APPARENTLY COMFORTABLY AT THIS TIME W/FAMILY AT BEDSIDE.
--- NOTE | 2019-08-02 04:50 | NUR ---
SHIFT SUMMARY: COMFORT CARE. PT REMAINS IN BED SLEEPING THROUGH MUCH OF THE NIGHT. FAMILY AT BEDSIDE. PT NONVERBAL. SHE DOES OPEN HER EYES BUT DOES NOT MAKE INTENTIONAL EYE CONTACT DURING TURNS AND ATTENDS CHANGES. PULLING HOSPITAL GOWN DOWN WHEN STAFF ATTEMPTING TO CHANGE HER. APPEARS COMFORTABLE. NO DYSPNEA. KEEPING 02 OFF PER PT APPARENT PREFERENCE AT THIS POINT. NO ACUTE CHANGES TONIGHT. WILL CONT TO MONITOR.
--- NOTE | 2019-08-02 09:37 | NUR ---
PATIENTS ATTENDS WERE CHECKED THEY WERE CLEAN AND DRY.
--- NOTE | 2019-08-02 15:31 | NUR ---
SHIFT SUMMARY PT REMAINS ON COMFORT CARE. SHE IS NOT A/O AND HAS NO S/S OF PAIN OR DISTRESS. THE FAMILY HAS BEEN AT THE BEDSIDE IN SHIFTS PER THE NURSING MORTGAGE MANAGER AND CALLS FOR HELP WHEN NEEDED. A COMFORT FOOD CART WAS ORDERED FOR THE FAMILY AND IS AT THE BEDSIDE. FAMILY IS AT THE BEDSIDE. PLAN IS FOR THE PT TO GO HOME ON HOSPICE LATER THIS WEEK.
--- NOTE | 2019-08-02 18:44 | NUR ---
PATIENT DID NOT EAT DINNER THIS SHIFT DUE TO BEING NPO AT THIS TIME.
--- NOTE | 2019-08-02 20:17 | NUR ---
FAMILY HAS BEEN VISITING PT ROTATING ONE VISITOR AT AT TIME. PT DAUGHTER IS IN THE ROOM AT THIS TIME. ASSESSED PT COMFORT AND ASKED IF THERE WAS ANYTHING THAT I COULD DO FOR HER OR THE PT. SHE DECLINED. PT APPEARS COMFORTABLE RESTING IN BED AND STATED THAT PT HAS RESTED COMFORTABLY DURING DAYSHIFT AND HAS NOT NEEDED ANYTHING FOR PAIN. WILL CONTINUE TO MONITOR.
--- NOTE | 2019-08-02 21:19 | NUR ---
PER FAMILY REPORT PT THROWING BLAKETS OFF AND ON MOVING AROUND IN BED. PT WAS WARM WITH PALPATION. REPOSITIONED PT, AND REMOVED EXTRA BLANKETS LEAVING THE TOP SHEET. PT APPEARS COMFORTABLE NOW AND IS RESTING. WILL CONTINUE TO MONITOR.
--- NOTE | 2019-08-03 04:20 | NUR ---
SHIFT SUMMARY NO ACUTE CHANGES TO REPORT THIS SHIFT, PT HAS SLEPT FOR MOST OF THE SHIFT, AND APPEARS COMFORTABLE RESTING AND HAS NOT NEEDED ANYTHING FOR PAIN. SHE OCCASIONALLY MOVES AROUND IN BED, AND RESPONDS WHEN STAFF ARE TURNING AND REPOSITIONING, BUT FOR THE MOST PART PT IS NOT RESPONSIVE. PT HAS HAD FAMILY IN AND OUT THIS SHIFT. ROTATING TWO VISITORS AT A TIME DUE TO CURRENT VISITATION POLICIES. PT DAUGHTER HAS STAYED WITH HER T/O THE NIGHT, AND DENIES NEEDS WHEN ASKED. COMFORT ASSESSED T/O SHIFT. BED IN LOWEST POSITION, CALL LIGHT WITHIN REACH. WILL CONTINUE TO MONITOR AND REPORT TO ONCOMING RN.
--- NOTE | 2019-08-03 08:42 | NUR ---
PATIENT DID NOT EAT BREAKFAST THIS SHIFT DUE TO BEING NPO AT THIS TIME.
--- NOTE | 2019-08-03 14:57 | NUR ---
PATIENT DID NOT EAT LUNCH THIS SHIFT DUE TO BEING NPO AT THIS TIME.
--- NOTE | 2019-08-03 14:58 | NUR ---
PATIENTS ATTENDS WERE CHECKED AND THEY WERE CLEAN AND DRY. PATIENT ALSO REPOSITIONED.
--- NOTE | 2019-08-03 15:38 | NUR ---
SHIFT SUMMARY PT CONTINUES ON COMFORT CARE. SHE HAS NO S/S OF PAIN OR DISTRESS. FAMILY REMAINS AT THE BEDSIDE AROUND THE CLOCK. COMFORT CART IS AT THE BEDSIDE FOR THE FAMILY. SAW THE PT THIS MORNING AND SPOKE WITH THE FAMILY ABOUT DC PLAN. FAMILY LETS STAFF KNOW IF THERE IS A NEED.
--- NOTE | 2019-08-03 19:32 | NUR ---
REPORT TAKEN FROM DAYSHIFT RN TO ASSUME CARE. PT IS SLEEPING AND APPEARS COMFORTABLE. FAMILY AT BEDSIDE. THEY DENY NEEDS AT THIS TIME. I ALSO ASKED IF THAT WOULD LIKE ME TO REPOSITION PT AND THEY DECLINED. STATING THAT SHE LOOKED COMFORTABLE, AND THAT SHE HAD JUST BE REPOSITIONED NOT TOO LONG AGO. WILL CONTINUE TO MONITOR.
--- NOTE | 2019-08-04 03:50 | NUR ---
PT CONTINUES TO REST COMFORTABLY WITHOUT DISTRESS. DAUGHTER REMAINS AT BEDSIDE AND DENIES NEEDS.
--- NOTE | 2019-08-04 04:21 | NUR ---
SHIFT SUMMARY PT HAS RESTED COMFORTABLY T/O THE SHIFT. APPEARS COMFORTABLE SLEEPING, NO ANXIETY, OR EXCESS SECREATIONS. PT DAUGHTER STAYED WITH HER OVERNIGHT. SHE HAS DENIED NEEDS FOR BOTH HER OR PT WHEN ASKED, AND STATED THAT HER MOTHER LOOKS COMFORTABLE. REPOSITIONED OFTEN T/O THE NIGHT FOR COMFORT. PT REMAINS FOR THE MOST PART UNRESPONSIVE BUT WILL OCCASIONALLY REMOVE HER BLANKETS. NO ACUTE CHANGES TO REPORT OVERNIGHT. COMFORT ASSESSED T/O SHIFT. BED IN LOWEST CALL LIGHT WITHIN REACH. WILL CONTINUE TO MONITOR AND REPORT TO ONCOMING RN.
--- NOTE | 2019-08-04 05:48 | NUR ---
PT DAUGHER DECLINES FOR US TO TURN AND REPOSITION PT AT THIS TIME. STATES SHE WOULD LIKE HER TO REST.
--- NOTE | 2019-08-04 07:49 | NUR ---
ASSUMED CARE OF PT- BEDSIDE REPORT COMPLETED. DAUGHTER IS AT THE BEDSIDE, MULTIPLE FAMILY ROTATE THROUGH TO SEE THE PT. PT APPEARS RELAXED NO S&S OF PAIN OR DISTRESS RESP E/U. PT REPOSITIONED TO LEFT SIDE FACE WASHED ATTENDS ARE DRY AT THIS TIME. PER REPORT PT HAS HAD MINIMAL OUTPUT. WILL CTM AND MEDICATE NEEDED.
--- NOTE | 2019-08-04 08:30 | NUR ---
COMFORT CARE NOTE- PT FAMILY REQUESTING ATIVAN. PT BECOMING RESTLESS AND FIDGETTY, NO AUDIBLE SECRETIONS AT THIS TIME. MEDICATED PT AND REPOSITIONED HER. PER FAMILY THE PT DOES NOT LIKE TO LAY ON HER LEFT SIDE.
--- NOTE | 2019-08-04 11:00 | NUR ---
COMFORT CARE NOTE- PLACED A NEW SCOPOLAMINE PATCH AND ADMINISTERED ATROPIENE DROPS FOR SECRETIONS, FAMILY WAS REQUESTING. REPOSITIONED THE PT WELL WITH MULTIPLE PILLOWS.
--- NOTE | 2019-08-04 18:07 | NUR ---
SHIFT SUMMARY- PT HAS HAD NO OUTPUT T/O THE DAY. MEDICATED ONCE FOR ANXIETY. PT APPEARED ANXIOUS A SECOND TIME BUT THERAPUDIC TOUCH HAND AND ARM LOTION, REPOSITIONING TO THE RIGHT SIDE APPEARES TO MAKE HER FAR MORE COMFORTABLE AND THE FAMILY STATED SHE DOES NOT LIKE THE LEFT SIDE LYING POSITION AT ALL. FAMILY STATED THE PT MADE THEM PROMISE NOT TO GIVE HER ANY MORPHINE. FAMILY IS TRYING TO HONOR HER WISHES. PT HAS BEEN MEDICATED FOR SECRETIONS T/O THE SHIFT. NO S&S OF DISTRESS NOTED AT THIS TIME NO MODELING, RESP E/U. PT APPEARS RELAXED AND COMFORTABLE AT THIS TIME. FAMILY AT THE BEDSIDE.
--- NOTE | 2019-08-04 19:54 | NUR ---
1900 COMFORT CARE BEDSIDE REPORT GIVEN. FAMILY AT BEDSIDE. APPEARS TO BE RESTING. NO ACUTE NEEDS AT THIS TIME. WCTM. BED IN LOWEST POSITION.
--- NOTE | 2019-08-04 23:26 | NUR ---
21OO COMFORT CARE REPOSITIONED; PREFERS RIGHT SIDE. ROUTINE BREIF CHECK; WET, CRISTINA-CARE COMPLETE. OFFERED ORAL CARE. DAUGHTER AT BEDSIDE. NO ACUTE NEEDS AT THIS TIME. BED IN LOWEST POSITION; ALARM ON. CALL LIGHT WITHIN REACH. WCTM.
--- NOTE | 2019-08-05 00:55 | NUR ---
2300 COMFORT CARE APPEARS TO BE RESTING. DAUGHTER STATES THAT D/T PATIENT FAVORING R SIDE DIDN'T NEED ANY REPOSITIONING AT THIS TIME. WCTM. BED IN LOWEST POSITION.
--- NOTE | 2019-08-05 01:03 | NUR ---
0103 COMFORT CARE APPEARS TO BE RESTING. NO ACUTE NEEDS AT THIS TIME. DAUGHTER AT BEDSIDE. BED IN LOWEST POSITION; ALARM ON. CALL LIGHT WITHIN REACH. WCTM.
--- NOTE | 2019-08-05 03:00 | NUR ---
0300 COMFORT CARE APPEARS TO BE RESTING. DAUGHTER STATED THAT IF PATIENT APPEARED COMFORTABLE TO NOT REPOSITION. BED IN LOWEST POSITION; ALARM ON. WCTM.
--- NOTE | 2019-08-05 04:23 | NUR ---
SHIFT SUMMARY APPEARED TO REST MUCH OF SHIFT. LITTLE ACKNOWLEDGEMENT WHEN ASKED DIRECT QUESTIONS. DAUGHTER AT BEDSIDE T/O SHIFT. NO NOTED ANXIETY/PAIN/DISCOMFORT NOTED THIS SHIFT; TURNS WITH EASE. X2 INCONTINENT VOIDS. REPOSITIONED TOLERATED. ORAL CARE PERFOMED. NO ACUTE CHANGES NOTED OVERNGHT. BED IN LOWEST POSITION; ALARM ON. CALL LIGHT WITHIN REACH. WCTM. REPORT TO ONCOMING RN.
--- NOTE | 2019-08-05 05:00 | NUR ---
0500 COMFORT CARE APPEARS TO BE RESTING. BREIF WET; CHANGED AND REPLACED MEEKS LINEN UNDERNEATH. ATTEMPTED ORAL CARE; REFUSED. REPOSITIONED. DAUGHTER AT BEDSIDE. TM.
--- NOTE | 2019-08-05 11:00 | NUR ---
PT DISCHARGED HOME ON HOSPICE AT 1030. GRAND DAUGHTER WAS AT BEDSIDE. PT WAS COMFORTABLE AND TOLERATED MOVING TO [facility] WELL. ALL BELONGINGS WERE COLLECTED AND CANDY HAD REVIEWED ALL INFO ON HOSPICE. PAPERS REVIEWED AND SIGNED WITH EDUCATIONAL MATERIAL SENT WITH PT.
== END 2019-08-05 10:30 | disposition hospice, home (50) | DRG 64 ==
LOC: ER 19:48 → MEDS 19:49 → ENPENDDIS 08-05 09:00 → MEDS 08-05 10:30
PROVIDERS: Emergency Medicine; ADMIT Internal Medicine
DX: I63.89 Other cerebral infarction (principal); J69.0 Pneumonitis due to inhalation of food and vomit; I10 Essential (primary) hypertension; K21.9 Gastro-esophageal reflux disease without esophagitis; M41.9 Scoliosis, unspecified; M81.0 Age-related osteoporosis without current pathological fracture; Z66 Do not resuscitate; Z51.5 Encounter for palliative care; R29.810 Facial weakness
CPT/HCPCS: 70450; 71045; 80053; 85025; 85610; 85730; 93005; 93010; 93308; 93321; 99285-25